=== PATIENT | female | born 1950 | race Caucasian/White ===

== ENCOUNTER → 2016-08-17 | Outpatient (CLI) | payer BC, OTHER ==
[~2016-08-17] MED LIST: ASPCH81X PO; CYCL10TA6 PO; ESTR1CRE PV; LISI5TAB3 PO; LPT/40 PO; METF1000 PO; TRAM-10 PO
== END | disposition home or self-care (01) ==
LOC: C.LABSPEC 17:45
PROVIDERS: ATTEND Obstetrics & Gynecology
DX: N76.0 Acute vaginitis (principal)

== ENCOUNTER → 2016-10-05 | Outpatient (CLI) | payer OTHER ==
[2016-10-05 13:29] LABS: BASO % 0.3 %; BASO ABS # 0.01 K/uL (0-0.2); COMPLETE YES; EOS % 2.3 %; HEMATOCRIT 39.6 % (37-47); LYMPH % 42.6 %; LYMPH ABS # 1.66 K/uL (1.2-3.4); MEAN CELL VOLUME 94.1 fL (80-100); MEAN CORPUSCULAR HEMOGLOBIN 30.2 pg (25-34); MEAN CORPUSCULAR HGB CONC 32.1 g/dl (32-36); MEAN PLATELET VOLUME 9.1 fL (7.4-10.4); MONO % 6.2 %; NEUT % 48.6 %; PLATELET COUNT 200 K/uL (130-400); RED BLOOD COUNT 4.21 M/uL (4.2-5.4)
[2016-10-05 13:42] LABS: CALCIUM 9.1 mg/dl (8.5-10.1)
[2016-10-05 13:52] LABS: BLOOD UREA NITROGEN 14 mg/dl (7-18); ESTIMATED AVERAGE GLUCOSE 131 mg/dl; GLUCOSE 127 mg/dl (70-99); HA1C FLAG Normal (Normal)
[2016-10-05 13:53] LABS: ALT/SGPT 21 U/L (12-78); BUN/CREATININE RATIO 11.9 (10-20); CARBON DIOXIDE 27 mmol/L (21-32); CHLORIDE 107 mmol/L (98-107); CHOLESTEROL 151 mg/dl (0-200); POTASSIUM 4.9 mmol/L (3.5-5.1); SODIUM 140 mmol/L (136-145); TRIGLYCERIDES 216 mg/dl (0-150); VERY LOW DENSITY LIPOPROT CALC 43 mg/dl
[2016-10-05 14:03] LABS: ALB/GLOB RATIO 1.1 (0.9-2); ALKALINE PHOSPHATASE 71 U/L (45-117); AST/SGOT 16 U/L (15-37); CHOLESTEROL/HDL RATIO 3.5; HDL CHOLESTEROL 43 mg/dl; LDL CHOLESTEROL CALCULATED 65 mg/dl
== END | disposition home or self-care (01) ==
LOC: C.LABPBG 09:04
PROVIDERS: ATTEND Neuromusculoskeletal Medicine & OMM
DX: Z00.00 Encounter for general adult medical examination without abnormal findings (principal); Z86.39 Personal history of other endocrine, nutritional and metabolic disease

== ENCOUNTER → 2017-05-25 | Outpatient (CLI) | payer OTHER ==
[2017-05-25 12:03] LABS: BASO % 0.3 %; BASO ABS # 0.01 K/uL (0-0.2); COMPLETE YES; EOS % 1.8 %; IG% 0.3 %; LYMPH % 43.8 %; LYMPH ABS # 1.68 K/uL (1.2-3.4); MEAN CELL VOLUME 92.4 fL (80-100); MEAN CORPUSCULAR HEMOGLOBIN 29.4 pg (25-34); MEAN CORPUSCULAR HGB CONC 31.8 g/dl (32-36); MONO % 7.3 %; NEUT % 46.5 %; PLATELET COUNT 201 K/uL (130-400); RED BLOOD COUNT 4.22 M/uL (4.2-5.4); WHITE BLOOD COUNT 3.84 K/uL (4.8-10.8)
[2017-05-25 12:29] LABS: ALT/SGPT 16 U/L (12-78); BLOOD UREA NITROGEN 17 mg/dl (7-18); BUN/CREATININE RATIO 12.5 (10-20); CALCIUM 9.2 mg/dl (8.5-10.1); CARBON DIOXIDE 27 mmol/L (21-32); CHLORIDE 104 mmol/L (98-107); CHOLESTEROL 155 mg/dl (0-200); CREATININE 1.39 mg/dl (0.60-1.20); GLUCOSE 129 mg/dl (70-99); POTASSIUM 4.7 mmol/L (3.5-5.1); SODIUM 136 mmol/L (136-145); TRIGLYCERIDES 185 mg/dl (0-150); VERY LOW DENSITY LIPOPROT CALC 37 mg/dl
[2017-05-25 12:37] LABS: ESTIMATED AVERAGE GLUCOSE 143 mg/dl; HA1C FLAG Normal (Normal)
[2017-05-25 12:39] LABS: ALB/GLOB RATIO 0.9 (0.9-2); ALKALINE PHOSPHATASE 76 U/L (45-117); AST/SGOT 11 U/L (15-37); CHOLESTEROL/HDL RATIO 3.1; HDL CHOLESTEROL 50 mg/dl; LDL CHOLESTEROL CALCULATED 68 mg/dl
== END | disposition home or self-care (01) ==
LOC: C.LABPBG 08:58
PROVIDERS: ATTEND Neuromusculoskeletal Medicine & OMM
DX: Z00.00 Encounter for general adult medical examination without abnormal findings (principal); I10 Essential (primary) hypertension; E78.5 Hyperlipidemia, unspecified; R73.03 Prediabetes

== ENCOUNTER → 2017-05-28 | Outpatient (CLI) | payer OTHER | END | disposition home or self-care (01) | LOC: C.LABPBG 14:45 | PROVIDERS: ATTEND Neuromusculoskeletal Medicine & OMM | DX: E78.5 Hyperlipidemia, unspecified (principal); R25.2 Cramp and spasm ==

== ENCOUNTER 2020-09-04 09:08 | Observation (INO) ==
[2020-09-04] MEDS ORDERED: FAMOTIDINE 20MG IV PUSH 20 MG/5 ML SYR IV STA (09:25)
[2020-09-04] MEDS ORDERED: ONDANSETRON INJ 2 MG/ML 2 ML VIAL IV STA (09:25)
[2020-09-04] MEDS ORDERED: SODIUM CHLORIDE 0.9% 1000ML 1,000 ML IV STA (09:25)
[2020-09-04] MEDS ORDERED: KETOROLAC TROMETHAMINE 15 MG/ML VIAL IV ONE (09:25)
--- NOTE | 2020-09-04 09:35 | Emergency Department Note ---
History of Present Illness General Chief complaint: Vomiting Stated complaint: VOMITING x24 HOURS Time Seen by Provider: 09/04/20 09:17 Source: patient Mode of arrival: ambulatory Limitations: no limitations History of Present Illness Provider complaint: Nausea/vomiting This is a 70-year-old female who presents to the ED with a chief complaint of nausea and vomiting as well as epigastric abdominal pain. The patient states that her symptoms started yesterday around noon. She states that she has not been able to keep anything down since that time. The patient reports a similar episode last Sunday that lasted for about 3 or 4 hours and then got better. She reports history of colectomy related to diverticulitis in May. He has intermittent epigastric discomfort that waxes and wanes. Home Medications Medication Instructions Recorded Confirmed Type blood sugar diagnostic #10 ea 12/26/18 07/23/20 History blood-glucose meter #1 ea 12/26/18 07/23/20 History aspirin 81 mg tablet,delayed 81 mg PO HS tab 04/25/19 09/04/20 History release [id number]-[id number]-[id number] 333 mg-133 1 tab PO BID tab 04/25/19 09/04/20 History mg-5 mg tablet fluticasone propionate 50 2 sprays INTRANASAL DAILY PRN gm 04/25/19 09/04/20 Hi story mcg/actuation nasal spray,suspension atenolol 37.5 mg PO QAM 02/02/20 09/04/20 History metformin 500 mg tablet 500 mg PO BID #180 tab 08/27/20 09/04/20 Rx fenofibrate nanocrystallized 145 mg PO QAM 09/04/20 09/04/20 History omeprazole 20 mg PO DAILYBB 09/04/20 09/04/20 History Allergies Allergy/AdvReac Type Severity Reaction Status Date / Time codeine Allergy Severe respiratory Verified 09/04/20 10:41 difficulty adhesive Allergy Intermediate skin pulls Verified 09/04/20 10:41 off latex Allergy Mild itchy with Verified 09/04/20 10:41 gloves amoxicillin Allergy Unknown Unknown Verified 09/04/20 10:41 Past Med/Surg History Medical History Aortic stenosis Benign essential hypertension Chronic kidney disease, stage III (moderate) Coronary artery disease Diverticular disease GERD without esophagitis Hyperlipidemia Nausea and vomiting after administration of anesthetic agent Osteoarthritis Type 2 diabetes mellitus Vaginal fistula Surgical History History of appendectomy History of cardiac cath x2--2002, no stents had CABG and 03/2018 @ [facility] [place]--no stents History of colonoscopy with polypectomy History of gynecological procedure benign vaginal biopsy History of left breast biopsy benign History of lumpectomy left breast--benign History of tooth extraction all teeth History of total hysterectomy with bilateral salpingo-oophorectomy (BSO) S/P CABG x 3 2002 @ [facility] [place]per pt she was having right neck pain performed a stress test--pt failed sent for heart cath and then immediate CABG ~Follows with Dr. 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 Beliefs That Will Affect Care: None marital status: Current Living Situation: Spouse current occupational status: retired Feels Safe at Home: Yes Childhood Exposure to Second-Hand Smoke: No caffeine: Yes Dental Care, Regularly: Yes Physical Activity Frequency: Daily Seatbelt Use: always Sunscreen Use: Yes Assistive Devices: Denture - Upper, Denture - Lower and Glasses Review of Systems A total of 10 systems reviewed and were otherwise negative Physical Exam Vital Signs Vital Signs - 24 hr 09/04/20 09:12 Temperature 36.0 C L Temperature Source Temporal Artery Scan Pulse Rate 57 L Pulse Rhythm Regular Pulse Strength Normal Respiratory Rate 18 Respiratory Effort / Characteristics Non-Labored Respiratory Depth Normal Respiratory Pattern Regular Blood Pressure 119/58 L Blood Pressure Mean 78 Blood Pressure Position Sitting Pulse Oximetry 95 Oxygen Delivery Method Room Air Sepsis Recent Fever Within 48 Hours No Sepsis New/Unexplained Change in Mental Status No Sepsis Action Taken by Nursing No Action Required CONSTITUTIONAL/VITAL SIGNS: Reviewed / noted above. GENERAL: Non-toxic in appearance. INTEGUMENTARY: Warm, dry, and [place]. HEAD: Normocephalic. EYES: without scleral icterus or trauma. ENT/OROPHARYNX: clear and moist. LYMPHADENOPATHY/NECK: Is supple without lymphadenopathy or meningismus. RESPIRATORY: Lungs clear and equal. CARDIOVASCULAR: Regular rate and rhythm. GI/ABDOMEN: Soft and tender in the epigastric area and less on the left upper quadrant. No organomegaly or pulsatile mass. No rebound or guarding. Normal bowel sounds. EXTREMITIES: Warm and well perfused. BACK: No CVA tenderness. NEUROLOGICAL: Intact without focal deficits. PSYCHIATRIC: normal affect. MUSCULOSKELETAL: Normally developed with good muscle tone. TRIAGE NURSING DOCUMENTATION REVIEWED. Course Administered Medications Discontinued Medications Sodium Chloride (Nss 1000ml) 1,000 mls @ 999 mls/hr IV .Q1H1M STA Stop: 09/04/20 10:25 Last Infusion: 09/04/20 10:41 Dose: 0 mls/hr Documented by: [id number] Admin: 09/04/20 09:44 Dose: 999 mls/hr Documented by: [id number] Famotidine (Pepcid 20mg Iv Push) 20 mg in 5 mls @ 2.5 mls/min IV NOW STA Stop: 09/04/20 09:26 Last Admin: 09/04/20 09:44 Dose: 2.5 mls/min Documented by: [id number] Ketorolac Tromethamine (Ketorolac Tromethamine 15 Mg/Ml Vial) 15 mg IV NOW ONE Stop: 09/04/20 09:26 Last Admin: 09/04/20 09:44 Dose: 15 mg Documented by: [id number] Ondansetron HCl (Ondansetron Inj 2 Mg/Ml 2 Ml Vial) 4 mg IV NOW STA Stop: 09/04/20 09:26 Last Admin: 09/04/20 09:44 Dose: 4 mg Documented by: [id number] Medical Decision Making Differential Diagnosis Differential considered: pancreatitis, hepatitis, acute cholecystitis, AAA, UTI, pyelonephritis, kidney stones, appendicitis, diverticulitis, shingles, bowel obstruction, mesenteric ischemia, intussusception,hernia. Medical Records Attestation: I reviewed the patient's medical records. Home Medications Current Medication List: was personally reviewed by me Laboratory Data Attestation: I reviewed the patient's lab results. Result diagrams: 09/04/20 09:40 09/04/20 09:40 Lab Results 09/04/20 09/04/20 Range/Units 09:40 09:40 WBC 5.59 (4.8-10.8) K/uL RBC 4.57 (4.2-5.4) M/uL Hgb 13.3 (12.0-16.0) g/dL Hct 39.9 (37-47) % MCV 87.3 (80-100) fL MCH 29.1 (25-34) pg MCHC 33.3 (32-36) g/dL RDW Std Deviation 46.5 H (36.4-46.3) fL RDW Coeff of Elza 14.5 (11.5-14.5) % Plt Count 354 (130-400) K/uL MPV 8.9 (7.4-10.4) fL Immature Gran % (Auto) 0.2 % Neut % (Auto) 74.7 % Lymph % (Auto) 16.5 % Nelson % (Auto) 8.2 % Eos % (Auto) 0.2 % Baso % (Auto) 0.2 % Neut # (Auto) 4.18 (1.4-6.5) K/uL Lymph # (Auto) 0.92 L (1.2-3.4) K/uL Nelson # (Auto) 0.46 (0.11-0.59) K/uL Eos # (Auto) 0.01 (0-0.5) K/uL Baso # (Auto) 0.01 (0-0.2) K/uL Immature Gran # (Auto) 0.01 (0.00-0.02) K/uL Sodium 136 (136-145) mmol/L Potassium 4.3 (3.5-5.1) mmol/L Chloride 102 (98-107) mmol/L Carbon Dioxide 26 (21-32) mmol/L Anion Gap 8.0 (3-11) BUN 21 H (7-18) mg/dl Creatinine 1.76 H (0.6-1.2) mg/dl Est Cr Clr Drug Dosing 28.8 ml/min Est GFR ( Amer) 33.6 Est GFR (Non-Af Amer) 29.0 BUN/Creatinine Ratio 11.8 (10-20) Glucose 167 H (70-99) mg/dl Calcium 10.4 H (8.5-10.1) mg/dl Total Bilirubin 0.6 (0.2-1) mg/dl AST 21 (15-37) U/L ALT 23 (12-78) U/L Alkaline Phosphatase 40 L (45-117) U/L Total Protein 8.0 (6.4-8.2) gm/dl Albumin 4.0 (3.4-5.0) gm/dl Globulin 4.0 (2.5-4.0) gm/dl Albumin/Globulin Ratio 1.0 (0.9-2) Lipase 236 (73-393) U/L Specimen Hemolysis Imaging Data Radiologist's Impression: HISTORY: Epigastric pain. Nausea. Vomiting. TECHNIQUE: Multiaxial CT images of the abdomen and pelvis were performed without contrast. A dose lowering technique was utilized adhering to the principles of ALARA. COMPARISON STUDY: Abdomen and pelvis CT 06/04/2020. FINDINGS: Punctate calcified granulomas within the lung bases. No pneumo peritoneum. No pneumatosis. Bilateral L5 spondylolysis with associated grade 1 anterolisthesis. Poststernotomy changes. No suspicious lytic are blastic osseous lesions. Prior midline incision. Trace fluid and fat within the subcutaneous location of the incision with minimal adjacent fat stranding. The fatty component components are loculated with a small soft tissue rind. Findings likely represent a fat necrosis related to the postoperative change. The bladder is decompressed. The uterus is surgically absent. Prior rectosigmoid anastomosis. Colonic diverticulosis. No evidence for acute diverticulitis. The colon is decompressed. Hepatic steatosis. The gallbladder, spleen, adrenal glands, and pancreas are unremarkable. No renal or ureteral stones. No hydronephrosis. Small bilateral peripelvic renal cysts. No retroperitoneal lymphadenopathy. Calcified plaque within the normal caliber abdominal aorta. Multiple dilated gas-filled loops of jejunum within the left side the abdomen. These measure up to 3.4 cm in diameter. There is a focal transition point within the midabdomen best seen on image 226. The small bowel distal to this transition point are decompressed. Therefore, this is consistent with a small bowel obstruction. Minimal mesenteric edema adjacent to the dilated loops of small bowel within the left side the abdomen. This is likely reactive to the small bowel obstruction. IMPRESSION: 1. Small bowel obstruction with the transition point located within the midabdomen as described above. 2. Prior rectosigmoid anastomosis. 3. Hysterectomy. 4. Hepatic steatosis. 5. Colonic diverticulosis. No evidence for acute diverticulitis. 6. Postoperative changes noted within the anterior abdominal wall consistent with prior midline incision. MDM Narrative Patient presents with epigastric abdominal pain, nausea and vomiting. Symptoms of pain going on for about 24 hours. Exam reveals tenderness to the epigastric area. CT scan suggest small bowel obstruction. CBC is unremarkable. Chemistry panel shows a slightly worsened creatinine than baseline. Patient was treated with some IV fluids, IV Pepcid, IV Toradol and IV Zofran. NG tube was ordered. The patient will be seen by the hospitalist for further evaluation and care. Impression & Plan SBO (small bowel obstruction), Vomiting Discharge Plan Visit Data Chief Complaint: Vomiting Stated Complaint: VOMITING x24 HOURS ED Provider: Darius Figueroa Discharge Problem: SBO (small bowel obstruction), Vomiting Forms Stand Alone Forms: [employer] Prescriptions Prescriptions: No Action metformin 500 mg tablet 500 mg PO BID Qty: 180 RF: 1 (DME) FreeStyle Test strip See Dose Instructions .ROUTE .MEDSUPPLY Qty: 10 RF: 0 (DME) blood-glucose meter [FreeStyle System Kit] kit See Dose Instructions .ROUTE .MEDSUPPLY Qty: 1 RF: 0 aspirin 81 mg tablet,delayed release (DR/EC) 81 mg PO HS RF: 0 aexrbtn-vdgjbazue-xcfj 333-133-5 mg tablet 1 tab PO BID RF: 0 fluticasone propionate 50 mcg/actuation spray,suspension 2 sprays intranasal DAILY PRN (Reason: Congestion) RF: 0 atenolol 25 mg tablet 37.5 mg PO QAM RF: 0 fenofibrate nanocrystallized 145 mg tablet 145 mg PO QAM RF: 0 omeprazole 20 mg capsule,delayed release(DR/EC) 20 mg PO DAILYBB RF: 0 Referrals Referrals: Wally Burns, [Primary Care Provider] -
[2020-09-04 09:48] LABS: Basophils # (auto) 0.01 K/uL (0-0.2); Basophils % (auto) 0.2 %; Eosinophils # (auto) 0.01 K/uL (0-0.5); Eosinophils % (auto) 0.2 %; Hematocrit (blood only) 39.9 % (37-47); Hemoglobin 13.3 g/dL (12.0-16.0); Immature Granulocytes # (auto) 0.01 K/uL (0.00-0.02); Immature Granulocytes % (auto) 0.2 %; Lymphocytes # (auto) 0.92 K/uL (1.2-3.4); Lymphocytes % (auto) 16.5 %; Mean Corpuscular Hemoglobin 29.1 pg (25-34); Mean Corpuscular Hgb Conc 33.3 g/dL (32-36); Mean Corpuscular Volume 87.3 fL (80-100); Mean Platelet Volume 8.9 fL (7.4-10.4); Monocytes # (auto) 0.46 K/uL (0.11-0.59); Monocytes % (auto) 8.2 %; Neutrophils # (auto) 4.18 K/uL (1.4-6.5); Neutrophils % (auto) 74.7 %; Platelet Count 354 K/uL (130-400); RDW Coefficient of Variation 14.5 % (11.5-14.5); RDW Standard Deviation 46.5 fL (36.4-46.3); Red Blood Count 4.57 M/uL (4.2-5.4); White Blood Count 5.59 K/uL (4.8-10.8)
[2020-09-04 10:15] LABS: BUN Creatinine Ratio 11.8 (10-20); Bilirubin,Total 0.6 mg/dl (0.2-1); Calcium 10.4 mg/dl (8.5-10.1); Creatinine Clr Calc Pharmacy 28.8 ml/min; Est GFR (African American) 33.6; Potassium 4.3 mmol/L (3.5-5.1)
--- NOTE | 2020-09-04 10:15 | CT Scan Report ---
ABDOMEN AND PELVIS CT WITHOUT CONTRAST CT DOSE: 896.96 mGy.cm HISTORY: Epigastric pain. Nausea. Vomiting. TECHNIQUE: Multiaxial CT images of the abdomen and pelvis were performed without contrast. A dose lo wering technique was utilized adhering to the principles of ALARA. COMPARISON STUDY: Abdomen and pelvis CT 06/04/2020. FINDINGS: Punctate calcified granulomas within the lung bases. No pneumoperitoneum. No pneumatosis. B ilateral L5 spondylolysis with associated grade 1 anterolisthesis. Poststernotomy changes. No suspici ous lytic are blastic osseous lesions. Prior midline incision. Trace fluid and fat within the subcuta neous location of the incision with minimal adjacent fat stranding. The fatty component components ar e loculated with a small soft tissue rind. Findings likely represent a fat necrosis related to the po stoperative change. The bladder is decompressed. The uterus is surgically absent. Prior rectosigmoid anastomosis. Colonic diverticulosis. No evidence for acute diverticulitis. The colon is decompressed. Hepatic steatosis. The gallbladder, spleen, adrenal glands, and pancreas are unremarkable. No renal or ureteral stones. No hydronephrosis. Small bilateral peripelvic renal cysts. No retroperitoneal lym phadenopathy. Calcified plaque within the normal caliber abdominal aorta. Multiple dilated gas-filled loops of jejunum within the left side the abdomen. These measure up to 3.4 cm in diameter. There is a focal transition point within the midabdomen best seen on image 226. The small bowel distal to this transition point are decompressed. Therefore, this is consistent with a small bowel obstruction. Min imal mesenteric edema adjacent to the dilated loops of small bowel within the left side the abdomen. This is likely reactive to the small bowel obstruction. IMPRESSION: 1. Small bowel obstruction with the transition point located within the midabdomen as described above . 2. Prior rectosigmoid anastomosis. 3. Hysterectomy. 4. Hepatic steatosis. 5. Colonic diverticulosis. No evidence for acute diverticulitis. 6. Postoperative changes noted within the anterior abdominal wall consistent with prior midline incis ion. ACT 112: Negative or not required by law. Electronically signed by: Jose Redman M.D. 09/04/2020 10:14 AM
--- NOTE | 2020-09-04 11:27 | History & Physical Report ---
Date of Service September 04, 2020 Assessment & Plan (1) SBO (small bowel obstruction): N.p.o. except sips of meds. IV fluids with electrolyte replacement as necessary. Will need diabetic and low-sodium diet once able to advance diet. Pain relief with acetaminophen as needed first-line, Dilaudid 0.5 mg every 2 hourly as needed second line Ondansetron for nausea or vomiting Consult surgery (2) Aortic stenosis: Mild to moderate on echocardiogram in April 2020 (3) Coronary artery disease: No recent angina CAB[place] x3 [place] [facility] [place] cardiac catheterization without significant change in need for PCI. Restart aspirin when able to tolerate p.o. liquids Continue atenolol as below Intolerant to multiple statins in the past (4) Chronic kidney disease, stage III (moderate): Close to baseline. Repeat BMP in a.m. with IV fluids (5) Benign essential hypertension: Continue atenolol 37.5 mg p.o. every morning to avoid rebound tachycardia with hold parameters (6) Type 2 diabetes mellitus: HbA1c 6.3 in July. No need to repeat this. Hold her usual Metformin NovoLog for correction factor only Goal BSG Range: Low 110 mg/dL, High 140 mg/dL Correction Factor: 45 mg/dL/unit No carb coverage BSGs ACHS if eating, q6h if npo (7) DVT prophylaxis: SCDs History of Present Illness Chief Complaint: Abdominal pain, nausea, vomiting Primary Care Provider: Wally Burns DO Lesia Yoo is a 70-year-old female who presents to the ER with nausea, vomiting and epigastric abdominal pain. This came on suddenly yesterday at midday. Last bowel movement yesterday morning. She was vomiting a "bucket full" this morning therefore decided to come to the emergency room. She denies any melena or bright red blood in stool. Epigastric pain has always been mild, current severity 3/10, worse right before she has a vomiting episode. Similar episode approximately 1 week ago which resolved spontaneously after a few hours. She has a significant history of vaginal bleeding in January colovaginal fistula seen on Gastrografin enema in February 2020. She underwent lap assisted low anterior resection and repair of colovesicular fistula on May 18, 2020 performed at (under Dr Dejesus). In the ER CT abdomen pelvis with IV contrast confirmed small bowel obstruction. NG tube was placed in the ER. She was referred to medicine for admission ongoing management of small bowel obstruction. Allergies Allergy/AdvReac Type Severity Reaction Status Date / Time codeine Allergy Severe respiratory Verified 09/04/20 10:41 difficulty adhesive Allergy Intermediate skin pulls Verified 09/04/20 10:41 off latex Allergy Mild itchy with Verified 09/04/20 10:41 gloves amoxicillin Allergy Unknown Unknown Verified 09/04/20 10:41 Home Medications Medication Instructions Recorded Confirmed Type blood sugar diagnostic #10 ea 12/26/18 07/23/20 History blood-glucose meter #1 ea 12/26/18 07/23/20 History aspirin 81 mg tablet,delayed 81 mg PO HS tab 04/25/19 09/04/20 History release gzcqisn-pnfnbmjsu-psge 333 mg-133 1 tab PO BID tab 04/25/19 09/04/20 History mg-5 mg tablet fluticasone propionate 50 2 sprays INTRANASAL DAILY PRN gm 04/25/19 09/04/20 History mcg/actuation nasal spray,suspension atenolol 37.5 mg PO QAM 02/02/20 09/04/20 History metformin 500 mg tablet 500 mg PO BID #180 tab 08/27/20 09/04/20 Rx fenofibrate nanocrystallized 145 mg PO QAM 09/04/20 09/04/20 History omeprazole 20 mg PO DAILYBB 09/04/20 09/04/20 History Past Med/Surg History Medical History Aortic stenosis Benign essential hypertension Chronic kidney disease, stage III (moderate) Coronary artery disease Diverticular disease GERD without esophagitis Hyperlipidemia Nausea and vomiting after administration of anesthetic agent Osteoarthritis Type 2 diabetes mellitus Vaginal fistula Surgical History History of appendectomy History of cardiac cath x2--2002, no stents [place] [facility] [place] History of colonoscopy with polypectomy History of gynecological procedure benign vaginal biopsy History of left breast biopsy benign History of lumpectomy left breast--benign History of tooth extraction all teeth History of total hysterectomy with bilateral salpingo-oophorectomy (BSO) S/P CABG x 3 2002 [place] [facility] [place] pt she was having right neck pain performed a stress test--pt failed sent for heart cath and then immediate CABG ~Follows with Dr. 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 Beliefs That Will Affect Care: None marital status: Current Living Situation: Spouse current occupational status: retired Feels Safe at Home: Yes Childhood Exposure to Second-Hand Smoke: No caffeine: Yes Dental Care, Regularly: Yes Physical Activity Frequency: Daily Seatbelt Use: always Sunscreen Use: Yes Assistive Devices: Denture - Upper, Denture - Lower and Glasses Review of Systems Review of Systems: All systems reviewed & are unremarkable except as noted in HPI & below Physical Exam Constitutional: well developed, well nourished and + acute distress (From NG tube discomfort) Eyes: + anicteric sclerae; normal pupil size ENMT: external ear and nose normal, oropharynx normal Neck: trachea midline, no thyromegaly Respiratory: normal respiratory effort, lungs clear to auscultation Cardiovascular: Rate/Rhythm: regular rate and regular rhythm Heart Sounds: + murmur (Holosystolic throughout) Extremities: normal capillary refill and + pedal edema (Trace pretibial pitting bilaterally equal); no calf tenderness Chronically right calf circumference > left Gastrointestinal (Abdomen): Inspection/Auscultation: + hyperactive bowel sounds; abdomen not distended Percussion/Palpation: + abdomen tender (Epigastric mild) and abdomen soft; no guarding and abdomen not rigid Musculoskeletal: no cyanosis or clubbing, extremities motor strength 5/5 Skin: no rashes, warm and dry Neurologic: moves all extremities and awake; not confused Psychiatric: A+Ox3, euthymic affect Results & Data Results & Data ([facility] [place]) Vital Signs (Past 12 Hours) Vital Signs Temp Pulse Resp BP Pulse Ox 09/04/20 09:12 36.0 C L 57 L 18 119/58 L 95 Diagnostic Findings ABDOMEN AND PELVIS CT WITHOUT CONTRAST IMPRESSION: 1. Small bowel obstruction with the transition point located within the midabdomen as described above. 2. Prior rectosigmoid anastomosis. 3. Hysterectomy. 4. Hepatic steatosis. 5. Colonic diverticulosis. No evidence for acute diverticulitis. 6. Postoperative changes noted within the anterior abdominal wall consistent with prior midline incision. Medications Administered ER medications given: NSS 1 hour bolus Ondansetron 4 mg IV Famotidine 20 mg IV Toradol 50 mg IV Code Status & VTE Plan Code Status Full VTE Prophylaxis Plan VTE Prophylaxis will be ordered: Yes Reason for no VTE drug order: Treatment not indicated (Low risk) PG Care Time/CCT Total # of Minutes Spent Total Time Spent with Patient: Total time spent is greater than 50% in coordination of care (as documented) at patient's floor/unit and/or counseling patient: Coding Level of Care Code 10081 Initial Inpt Care Lvl 3 Diagnoses SBO (small bowel obstruction) K56.609 Aortic stenosis I35.0 Cardiac valve disease etiology: nonrheumatic Coronary artery disease I25.10 Chronic kidney disease, stage III (moderate) N18.3 Benign essential hypertension I10 Type 2 diabetes mellitus E11.9 Diabetes mellitus terminal operator insulin use: without prison use Diabetes mellitus complication status: without complication DVT prophylaxis Z29.9 (1) Aortic stenosis Cardiac valve disease etiology: nonrheumatic Qualified Code(s): I35.0 - Nonrheumatic aortic (valve) stenosis (2) Type 2 diabetes mellitus Diabetes mellitus terminal operator insulin use: without prison use Diabetes mellitus complication status: without complication Qualified Code(s): E11.9 - Type 2 diabetes mellitus without complications
[2020-09-04] MEDS ORDERED: HYDROmorphone INJ 0.5 MG/0.5 ML SYR IV PRN (14:44)
[2020-09-04] MEDS ORDERED: ACETAMINOPHEN 1,000 MG/100 ML VIAL IV PRN (14:44)
[2020-09-04] MEDS ORDERED: GLUCAGON FOR INJ 1 MG VIAL SQ PRN (14:44)
[2020-09-04] MEDS ORDERED: GLUCOSE 10 TABS/TUBE PO PRN (14:44)
[2020-09-04] MEDS ORDERED: ONDANSETRON INJ 2 MG/ML 2 ML VIAL IV PRN (14:44)
[2020-09-04] MEDS ORDERED: DEXTROSE 50% 50 ML SYRINGE IV PRN (14:44)
[2020-09-04] MEDS ORDERED: CARBOHYDRATES FOR HYPOGLYCEMIA PO PRN (14:44)
[2020-09-04] MEDS ORDERED: GLUCOSE 40% GEL 15 GM TUBE PO PRN (14:44)
[2020-09-04] MEDS: SODIUM CHLOR 0.45% + 20MEQ KCL 20 MEQ/1,000 ML BAG IV SCH ×2 (15:23→23:32)
[2020-09-04 15:57] LABS: Appearance Urine Cloudy (Clear); Bacteria Urine Automated 1+ (Negative); Bilirubin Urine Negative (Negative); Blood Urine Trace (Negative); Color Urine Dark Yellow; Epithelial Cell Urine Auto >30 /lpf (0-5); Glucose Urine UA Negative (Negative); Ketones Urine Trace (Negative); Leukocyte Esterase Urine Negative (Negative); Nitrite Urine Positive (Negative); Protein Urine 1+ (Negative); RBC Urine Automated 0-4 /hpf (0-4); Specific Gravity Urine 1.029 (1.000-1.030); Urobilinogen Urine Negative (Negative)
[2020-09-04] MEDS: INSULIN ASPART 100 UNITS/ML 3 ML PEN SC SCH ×3 (17:04→21:30)
--- NOTE | 2020-09-04 23:10 | Surgery Consultation ---
Date of Consultation September 04, 2020 Assessment & Plan (1) SBO (small bowel obstruction): Patient small bowel obstruction is likely on the basis of adhesions from prior surgery. She has been admitted by the medical service. We will proceed as follows: Keep the patient n.p.o. Maintain NG tube. As patient is passing flatus if she continues to have improved bowel function we may consider either clamping trial of the NG tube or removal tomorrow. Maintain hydration measures with IV fluids Hopefully with the measures outlined above her small bowel obstruction will resolve with conservative measures and she will not require surgery. Remainder of plan as directed by primary service Supervising Physician Co-Signing Physician Notes I personally saw and evaluated the patient with Nick Mcdonald PA-C and agree with the assessment and plan. 70 yo female with pSBO s/p lap LAR in May 2020 -NPO -NGT -IVF -Serial abdominal exams -NO emergent need for operative intervention History of Present Illness Reason for Consultation: Small bowel obstruction Attending Physician: Mehul Meehan MD History of Present Illness This is a 70-year-old female who presented to the emergency department at [facility] due to nausea and vomiting that is persisted for 24 to 48 hours. Patient does relate that approximately 1 week ago she had some intermittent nausea vomiting. She merely felt that she had a gastrointestinal bug as the symptoms resolved. She was doing well thereafter however approximately 24 to 48 hours ago she developed nausea vomiting that did not resolve so she came to the emergency department. She denies any abdominal pain. She denies any hematemesis. She notes that she did have a normal bowel movement earlier today and does not report any melena or bright blood per rectum. She does not note any modifying factors of her current presentation. Patient had various imaging and laboratory studies performed in the emergency department which I independently reviewed. CBC revealed her hemoglobin, hematocrit, white blood cell count, and platelet count were all within normal range. Chemistry profile revealed her sodium and potassium were within normal range. Her BUN and creatinine were noted to be 21 and 1.76. Both of these values were noted to be slight elevations from her baseline levels. A Covid test was performed and was negative. CT scan of the abdomen showed concern for a small bowel obstruction I question the patient about previous abdominal surgeries. She does note in the past she has had a hysterectomy and she is also had a partial colectomy secondary to diverticulitis. Since admission to the hospital she has been kept n.p.o., has had an NG tube inserted, and has been given IV fluids. She notes her symptoms have improved somewhat and she is passing flatus. At the time of my encounter with the patient she was resting comfortably in bed and is in no distress. Allergies Allergy/AdvReac Type Severity Reaction Status Date / Time codeine Allergy Severe respiratory Verified 09/04/20 10:41 difficulty adhesive Allergy Intermediate skin pulls Verified 09/04/20 10:41 off latex Allergy Mild itchy with Verified 09/04/20 10:41 gloves amoxicillin Allergy Unknown Unknown Verified 09/04/20 10:41 Home Medications Medication Instructions Recorded Confirmed Type blood sugar diagnostic #10 ea 12/26/18 07/23/20 History blood-glucose meter #1 ea 12/26/18 07/23/20 History aspirin 81 mg tablet,delayed 81 mg PO HS tab 04/25/19 09/04/20 History release ahqxpum-dsheqkdbw-tvny 333 mg-133 1 tab PO BID tab 04/25/19 09/04/20 History mg-5 mg tablet fluticasone propionate 50 2 sprays INTRANASAL DAILY PRN gm 04/25/19 09/04/20 History mcg/actuation nasal spray,suspension atenolol 37.5 mg PO QAM 02/02/20 09/04/20 History metformin 500 mg tablet 500 mg PO BID #180 tab 08/27/20 09/04/20 Rx fenofibrate nanocrystallized 145 mg PO QAM 09/04/20 09/04/20 History omeprazole 20 mg PO DAILYBB 09/04/20 09/04/20 History Patient History Medical History Aortic stenosis Benign essential hypertension Chronic kidney disease, stage III (moderate) Coronary artery disease Diverticular disease GERD without esophagitis Hyperlipidemia Nausea and vomiting after administration of anesthetic agent Osteoarthritis Type 2 diabetes mellitus Vaginal fistula Surgical History History of appendectomy History of cardiac cath x2--2002, no stents had CABG and 03/2018 @ [facility] [place]--no stents History of colonoscopy with polypectomy History of gynecological procedure benign vaginal biopsy History of left breast biopsy benign History of lumpectomy left breast--benign History of tooth extraction all teeth History of total hysterectomy with bilateral salpingo-oophorectomy (BSO) S/P CABG x 3 2002 @ [facility] [place]--per pt she was having right neck pain performed a stress test--pt failed sent for heart cath and then immediate CABG ~Follows with Dr. Leahy S/P colon resection S/P epidural steroid injection Family History Brother Myocardial infarction Family history of diabetes mellitus Father Myocardial infarction Mother Myocardial infarction Other No family history of adverse response to anesthesia Denies family history of Ovarian cancer Prostate cancer Breast cancer Colorectal cancer Social History Smoking Status: Former smoker Second Hand Exposure: No; Hx Alcohol Use: No Hx Substance Use: No Preferred Language: Vincentian Communication Ability: Effective Visual Impairment: No Limitations Hearing Ability: Normal Batch Unloader Required: No Beliefs That Will Affect Care: None marital status: Current Living Situation: Spouse current occupational status: retired Feels Safe at Home: Yes Childhood Exposure to Second-Hand Smoke: No caffeine: Yes Dental Care, Regularly: Yes Physical Activity Frequency: Daily Seatbelt Use: always Sunscreen Use: Yes Assistive Devices: None, Denture - Upper, Denture - Lower and Glasses Review of Systems Constitutional: no fever and no chills Eyes: no diplopia Ear, Nose, Mouth, Throat: no ear pain Respiratory: no cough and no dyspnea Cardiovascular: no chest pain Gastrointestinal: + nausea and + vomiting; no abdominal pain Genitourinary: no dysuria Musculoskeletal: no back pain Integumentary: no rash Neurologic: no localized weakness Physical Exam Constitutional: well developed and well nourished; no acute distress Eyes: no conjunctival abnormality Wears glasses ENMT: Ears: no hearing impairment NG tube is in place Neck: trachea midline Respiratory: normal respiratory effort; no respiratory distress and no labored breathing Cardiovascular: Rate/Rhythm: regular rate and regular rhythm Gastrointestinal (Abdomen): Abdomen is soft and nondistended. Bowel sounds are present but hypoactive. There is no pain with palpation. There is no rebound tenderness or guarding. Musculoskeletal: No calf tenderness Skin: no rashes, warm and dry Neurologic: moves all extremities Results & Data ([facility]) Vital Signs (Past 12 Hours) Vital Signs Temp Pulse Pulse Resp BP BP BP 09/04/20 14:51 36.4 C L 67 16 149/68 H 09/04/20 14:49 36.4 C L 67 16 149/68 H 09/04/20 13:58 70 20 163/82 H 09/04/20 13:00 70 17 162/81 H 09/04/20 11:08 75 18 175/72 H Pulse Ox 09/04/20 14:51 99 09/04/20 14:49 99 09/04/20 13:58 100 09/04/20 13:00 98 09/04/20 11:08 100 PG Care Time/CCT Total # of Minutes Spent Total Time Spent with Patient: Total time spent is greater than 50% in coordination of care (as documented) at patient's floor/unit and/or counseling patient: Coding Level of Care Code 94615 Inpt Consult Level 5 Diagnoses SBO (small bowel obstruction) K56.609
[2020-09-05] MEDS ORDERED: Nursing to Pharmacy Communication SCH ×2 (00:15→11:15)
[2020-09-05] MEDS ORDERED: INSULIN ASPART 100 UNITS/ML 3 ML PEN SC SCH (06:00)
[2020-09-05 06:20] LABS: Basophils # (auto) 0.01 K/uL (0-0.2); Basophils % (auto) 0.3 %; Eosinophils # (auto) 0.02 K/uL (0-0.5); Eosinophils % (auto) 0.7 %; Hematocrit (blood only) 34.8 % (37-47); Hemoglobin 11.2 g/dL (12.0-16.0); Lymphocytes # (auto) 1.13 K/uL (1.2-3.4); Lymphocytes % (auto) 37.5 %; Mean Corpuscular Hemoglobin 28.6 pg (25-34); Mean Corpuscular Hgb Conc 32.2 g/dL (32-36); Mean Platelet Volume 8.3 fL (7.4-10.4); Monocytes # (auto) 0.32 K/uL (0.11-0.59); Monocytes % (auto) 10.6 %; Neutrophils # (auto) 1.53 K/uL (1.4-6.5); Neutrophils % (auto) 50.9 %; Platelet Count 214 K/uL (130-400); RDW Coefficient of Variation 14.6 % (11.5-14.5); RDW Standard Deviation 47.7 fL (36.4-46.3); Red Blood Count 3.91 M/uL (4.2-5.4); White Blood Count 3.01 K/uL (4.8-10.8)
--- NOTE | 2020-09-05 06:28 | Surgery Progress Note ---
Date of Service September 05, 2020 Assessment & Plan (1) SBO (small bowel obstruction): Etiology of small bowel obstruction is likely adhesions from prior surgery. She has been admitted by the medical service. As patient's abdominal exam is benign and her bowel function has returned we will consider removing NG tube later this morning. If NG tube removed later this morning would recommend starting with clear liquid diet and advancing slowly as tolerated Maintain hydration measures with IV fluids until oral intake is reliable Remainder of plan as directed by primary service Admission and Anticipated Discharge Date Admission Date: September 04, 2020 Supervising Physician Co-Signing Physician Notes I personally saw and evaluated the patient with Nick Mcdonald PA-C and agree with the assessment and plan. 70 yo female with pSBO s/p lap LAR in May 2020 -Passing flatus and small BM -Will remove NGT and start clears Subjective Since last evening's visit the patient noted some improvement. She notes that she has had a bowel movement and she continues to pass flatus. She denies any worsening abdominal pain. She has not had any further nausea vomiting since NG tube placement. She denies any fevers, shakes, chills, or shortness of breath. Physical Exam Constitutional: well developed and well nourished; no acute distress ENMT: NG tube is in place Respiratory: normal respiratory effort; no respiratory distress and no labored breathing Gastrointestinal (Abdomen): Abdomen is soft and nondistended. Bowel sounds are present. There is no pain with palpation. There is no rebound tenderness or guarding. Musculoskeletal: No calf tenderness Results & Data ([facility]) Vital Signs (Past 12 Hours) Vital Signs Temp Pulse Resp BP Pulse Ox 09/04/20 23:30 36.6 C 71 16 132/74 95 PG Care Time/CCT Total # of Minutes Spent Total Time Spent with Patient: Total time spent is greater than 50% in coordination of care (as documented) at patient's floor/unit and/or counseling patient: Coding Level of Care Code 69148 Subseq Hosp Care Lvl 1 Diagnoses SBO (small bowel obstruction) K56.609
[2020-09-05 06:52] LABS: BUN Creatinine Ratio 15.5 (10-20); Calcium 8.4 mg/dl (8.5-10.1); Creatinine Clr Calc Pharmacy 35.7 ml/min; Est GFR (African American) 43.2; Est GFR (Non-African American) 37.3; Potassium 4.3 mmol/L (3.5-5.1)
[2020-09-05] MEDS: SODIUM CHLOR 0.45% + 20MEQ KCL 20 MEQ/1,000 ML BAG IV SCH ×2 (07:35→16:05)
[2020-09-05] MEDS ORDERED: FAMOTIDINE 20 MG in SYRINGE 3 ML IV SCH (09:00)
[2020-09-05] MEDS ORDERED: ATENOLOL 25 MG TABLET PO SCH (09:00)
[2020-09-05] MEDS: INSULIN ASPART 100 UNITS/ML 3 ML PEN SC SCH ×2 (13:21→17:55)
--- NOTE | 2020-09-05 17:20 | Discharge Summary ---
Date of Service date of admission - September 04, 2020 date of discharge - September 05, 2020 Admission HPI Per Admitting Provider Lesia Yoo is a 70-year-old female who presents to the ER with nausea, vomiting and epigastric abdominal pain. This came on suddenly yesterday at midday. Last bowel movement yesterday morning. She was vomiting a "bucket full" this morning therefore decided to come to the emergency room. She denies any melena or bright red blood in stool. Epigastric pain has always been mild, current severity 3/10, worse right before she has a vomiting episode. Similar episode approximately 1 week ago which resolved spontaneously after a few hours. She has a significant history of vaginal bleeding in January colovaginal fistula seen on Gastrografin enema in February 2020. She underwent lap assisted low anterior resection and repair of colovesicular fistula on May 18, 2020 performed at [facility] (under Dr Dejesus). In the ER CT abdomen pelvis with IV contrast confirmed small bowel obstruction. NG tube was placed in the ER. She was referred to medicine for admission ongoing management of small bowel obstruction. Principal Diagnosis Small Bowel Obstruction (SBO) Discharge Exam Constitutional well developed and well nourished; no acute distress and no altered mental st atus ENMT external ear and nose normal, oropharynx normal Respiratory normal respiratory effort, lungs clear to auscultation Cardiovascular Rate/Rhythm: regular rate and regular rhythm Heart Sounds: normal S1, normal S2 and + murmur Vessels: posterior tibial pulses present and dorsalis pedis pulses present; no JVD Extremities: no edema Gastrointestinal (Abdomen) normal bowel sounds, soft, nontender, no hepatosplenomegaly Inspection/Auscultation: abdomen not distended Psychiatric A+Ox3, euthymic affect Discharge Data Allergies Allergy/AdvReac Type Severity Reaction Status Date / Time codeine Allergy Severe respiratory Verified 09/04/20 10:41 difficulty adhesive Allergy Intermediate skin pulls Verified 09/04/20 10:41 off latex Allergy Mild itchy with Verified 09/04/20 10:41 gloves amoxicillin Allergy Unknown Unknown Verified 09/04/20 10:41 Consultations [facility] [place] General Surgery Ordered Studies 09/04/20 09:25 CT abd pelvis wo con Stat IMPRESSION: 1. Small bowel obstruction with the transition point located within the midabdomen as described above. 2. Prior rectosigmoid anastomosis. 3. Hysterectomy. 4. Hepatic steatosis. 5. Colonic diverticulosis. No evidence for acute diverticulitis. 6. Postoperative changes noted within the anterior abdominal wall consistent with prior midline incision. Hospital Course (1) SBO (small bowel obstruction): Treated with NG tube decompression, IV fluids, and bowel rest. Patient's SBO resolved rather quickly as marked by passage of flatus and stools early on in her clinical course. Seen by [facility] [place] General surgery, and following the passage of stool, the NG tube was discontinued. She was resumed on a clear liquids diet and advanced without any GI intolerance. Abdominal exam normalized. She was asked to follow a low-fiber diet for at least 7 days post-discharge. (2) Aortic stenosis: Mild to moderate on echocardiogram in April 2020 (3) Coronary artery disease: No recent angina/ischemic symptoms. CABG x3 in 2002 [facility] [place]. [place] cardiac catheterization without significant change in need for PCI. Continue aspirin Continue atenolol Intolerant to multiple statins in the past (4) Chronic kidney disease, stage III (moderate): baseline CrCL 30s/40s (5) Benign essential hypertension: Continue atenolol 37.5 mg p.o. every morning (6) Type 2 diabetes mellitus: HbA1c 6.3 in July 2020. Metformin resumed at discharge. (of note - CT abd/pelvis was WITHOUT IV contrast). Total Time Total Time Spent Total Time Spent (In Minutes): 35 Total Time Includes: Examination of the Patient, Discharge Planning, Medication Reconciliation and Communication With Other Providers Discharge Plan Discharge Items Patient Disposition: Home - Self-Care Reason For Visit: SMALL BOWEL OBSTRUCTION Discharge Diagnosis: Small bowel obstruction - resolved Activity: As commented below Activity Comment: gradually increase your activities over the next 3-4 days Non-emergency contact: Primary Care Provider Call non-emergency contact if: you have any medication questions and your symptoms worsen Follow-up/Referrals: Wally Burns, DO [Primary Care Provider] - (see Dr Burns within 1 week ) Diet: Carb Consistent or DM2 and Low Fiber Addtl Attending Provider Instructions: Mrs Yoo, You were treated for small bowel obstruction ("SBO") with IV fluids, NG tube placement, and time. You quickly improved with passage of gas and bowel movements. The general surgery team removed the NG tube and you were given a diet. This was advanced without difficulty. The SBO was likely due to adhesions within the abdominal cavity. Adhesions are scar tissue from prior operations. Recommendations - 1. low fiber diet for at least 7 days; please see handout. 2. avoid fried foods, fast foods, and large meals over the next few days as you continue to recover. 3. after about 7 days you can gradually reintroduce foods that have larger amounts of fiber in them (certain cereals, oatmeal, beans, etc). 4. your urine culture is growing bacteria. However, you are not having symptoms of a urinary tract infection. In the next 2-3 days if you notice foul-smelling urine, discomfort with urination, frequency of urination, accidents, etc you can start the antibiotic. It is a 5-day course. I have sent the prescription to [facility] for you. Follow-up - see separate section. Return to [facility] if - * you have fevers over 100 degrees * your abdomen becomes bloated/distended, you are no longer passing gas or stool, or you develop abdominal pain * you have nausea/vomiting * any other concerns Continue to feel better! -Dr Rm Pending Studies at Discharge: No Stand-Alone Forms: My [facility], Smoking Cessation Medications and DC Order Prescriptions: Continued metformin 500 mg tablet 500 mg PO BID Qty: 180 RF: 1 (DME) FreeStyle Test strip See Dose Instructions .ROUTE .MEDSUPPLY Qty: 10 RF: 0 (DME) blood-glucose meter [FreeStyle System Kit] kit See Dose Instructions .ROUTE .MEDSUPPLY Qty: 1 RF: 0 aspirin 81 mg tablet,delayed release (DR/EC) 81 mg PO HS RF: 0 kihilwh-alogyvymu-aeay 333-133-5 mg tablet 1 tab PO BID RF: 0 fluticasone propionate 50 mcg/actuation spray,suspension 2 sprays intranasal DAILY PRN (Reason: Congestion) RF: 0 atenolol 25 mg tablet 37.5 mg PO QAM RF: 0 fenofibrate nanocrystallized 145 mg tablet 145 mg PO QAM RF: 0 omeprazole 20 mg capsule,delayed release(DR/EC) 20 mg PO DAILYBB RF: 0 Discharge Orders: Discharge Order (Routine); Ordered 09/05/20 Ordered By: Mehul Gunn/Other Patient Handouts: Small Bowel Obstruction, Low-Fiber Diet Admission Data Admit Date/Time: 09/04/20 11:14 Attending Provider: Mehul Rm Admit Provider: Mehul Meehan Primary Care Provider: Wally Burns Other Providers: José Miguel Villavicencio Other Interventions: Discharge Summary Assessment (RN) Last Done: 09/05/20 17:44 Coding Level of Care Code 64707 OBS Care - Discharge Diagnoses SBO (small bowel obstruction) K56.609 Aortic stenosis I35.0 Cardiac valve disease etiology: nonrheumatic Coronary artery disease I25.10 Chronic kidney disease, stage III (moderate) N18.3 Benign essential hypertension I10 Type 2 diabetes mellitus E11.9 Diabetes mellitus complication status: without complication Diabetes mellitus fdc insulin use: without long wall shear operator use
== END 2020-09-05 18:21 | disposition home or self-care (01) | DRG 390 ==
LOC: ED 09:08 → INTOOBSV 11:14 → 3N 11:14 → SUATTDRO 11:14 → 3N 13:58
DX: N18.30 Chronic kidney disease, stage 3 unspecified; I35.0 Nonrheumatic aortic (valve) stenosis; I12.9 Hypertensive chronic kidney disease with stage 1 through stage 4 chronic kidney disease, or unspecified chronic kidney disease; Z88.0 Allergy status to penicillin; Z79.899 Other long term (current) drug therapy; K56.51 Intestinal adhesions [bands], with partial obstruction; Z88.5 Allergy status to narcotic agent; E11.22 Type 2 diabetes mellitus with diabetic chronic kidney disease; Z87.891 Personal history of nicotine dependence; I25.10 Atherosclerotic heart disease of native coronary artery without angina pectoris; Z79.82 Long term (current) use of aspirin; Z95.1 Presence of aortocoronary bypass graft; Z79.84 Long term (current) use of oral hypoglycemic drugs; Z91.040 Latex allergy status; Z91.048 Other nonmedicinal substance allergy status; K21.9 Gastro-esophageal reflux disease without esophagitis

== ENCOUNTER 2021-09-07 12:52 | Inpatient (IN) ==
[2021-09-07] MEDS ORDERED: ASPIRIN CHEW 324 MG PO STA (13:29)
[2021-09-07] MEDS ORDERED: NITROGLYCERIN SL 0.4 MG/TAB TAB SL STA ×2 (13:29→13:48)
[2021-09-07] MEDS ORDERED: ASPIRIN CHEW 324 MG ONE (13:29)
[2021-09-07] MEDS ORDERED: NITROGLYCERIN SL 0.4 MG/TAB TAB ONE (13:29)
[2021-09-07 13:42] LABS: Basophils # (auto) 0.01 K/uL (0-0.2); Basophils % (auto) 0.2 %; Eosinophils # (auto) 0.07 K/uL (0-0.5); Eosinophils % (auto) 1.1 %; Hematocrit (blood only) 40.3 % (37-47); Hemoglobin 12.4 g/dL (12.0-16.0); Immature Granulocytes # (auto) 0.01 K/uL (0.00-0.02); Immature Granulocytes % (auto) 0.2 %; Lymphocytes # (auto) 1.14 K/uL (1.2-3.4); Lymphocytes % (auto) 17.6 %; Mean Corpuscular Hemoglobin 28.2 pg (25-34); Mean Corpuscular Hgb Conc 30.8 g/dL (32-36); Mean Corpuscular Volume 91.6 fL (80-100); Mean Platelet Volume 8.8 fL (7.4-10.4); Monocytes % (auto) 6.2 %; Neutrophils # (auto) 4.85 K/uL (1.4-6.5); Neutrophils % (auto) 74.7 %; Platelet Count 281 K/uL (130-400); RDW Coefficient of Variation 17.7 % (11.5-14.5); RDW Standard Deviation 59.1 fL (36.4-46.3); White Blood Count 6.48 K/uL (4.8-10.8)
[2021-09-07] MEDS ORDERED: NITROGLYCERIN SL 0.4 MG/TAB TAB SL ONE (13:44)
[2021-09-07] MEDS ORDERED: NITROGLYCERIN 2% OINTMENT 30GM TUBE EXT STA (13:48)
[2021-09-07] MEDS ORDERED: NITROGLYCERIN 2% OINTMENT 30GM TUBE ONE (13:49)
[2021-09-07 13:54] LABS: Partial Thromboplastin Ratio 0.9; Partial Thromboplastin Time 24.2 Seconds (21.0-31.0); Prothrombin Time 11.1 Seconds (9.0-12.0)
--- NOTE | 2021-09-07 14:00 | XRay Report ---
XR chest 1V portable CLINICAL HISTORY: CHEST PAIN. COMPARISON STUDY: 08/18/2021 TECHNIQUE: 1 view of the chest FINDINGS: Single frontal view of the chest demonstrates the heart size to be at the upper limits of normal stat us post previous cardiothoracic surgery. There is a decreased inspiratory effort with elevation of th e hemidiaphragms and crowding of the bronchovascular markings at the lung bases and centrally. The abrahan ngs are clear of alveolar opacities. There is no evidence for pleural effusion. There is no evidence for vascular congestion. There is no acute osseous pathology. IMPRESSION: 1. . There is a decreased inspiratory effort with otherwise no acute chest disease. ACT 112: Negative or not required by law. Electronically signed by: Parish Harmon M.D. 09/07/2021 1:58 PM
[2021-09-07] MEDS ORDERED: METOPROLOL TARTRATE 1 MG/ML VIAL IV STA (14:01)
[2021-09-07 14:05] LABS: Albumin Globulin Ratio 1.4 (0.9-2); Albumin Level 4.3 gm/dl (3.4-5.0); BUN Creatinine Ratio 14.8 (10-20); Bilirubin,Total 0.3 mg/dl (0.2-1.0); Calcium 9.5 mg/dl (8.5-10.1); Creatinine Clr Calc Pharmacy 37.9 ml/min; Est GFR (African American) 43.3 ml/min; Est GFR (Non-African American) 37.3 ml/min; Globulin 3.1 gm/dl (2.5-4.0); Potassium 4.2 mmol/L (3.5-5.1); Total Protein 7.4 gm/dl (6.0-8.3)
[2021-09-07 14:14] LABS: Troponin I 0.36 ng/ml (0-0.04)
--- NOTE | 2021-09-07 14:14 | Cardiology Consultation ---
Date of Consultation September 07, 2021 Assessment & Plan (1) NSTEMI (non-ST elevated myocardial infarction): 2. Severe aortic stenosis, moderate AI 3. New mild LV dysfunction, EF 45%, lateral, inferolateral wall motion 4. New at least moderate eccentric mitral regurgitation 5. Acute heart failure 6. Multivessel CADcardiac cath 2 weeks ago showing patent ALLISON to LAD, very small diseased radial to distal RCA. Known occluded Y graft to circumflex 7. Stage III CKD 8. Anemia Presentation consistent with acute coronary syndrome. Circumflex appears to be her culprit vessel with new lateral/inferolateral wall motion abnormality on echo and potential ischemic mitral regurgitation. On recent cath again described to have an occluded ostial left main with a patent ALLISON to LAD that provided collaterals to circumflex territory. Very low suspicion for new ALLISON to LAD disease and feel it is unlikely she has any percutaneous revascularization targets. As patient hemodynamically, electrically stable with resolving symptoms recommend medical management currently. Eventually she will need her severe valve disease to be addressed. [facility] where was previously being evaluated for TAVR was contacted. At present no available bed. Plan: Admit to ICU for further monitoring Start IV heparin Continue nitro infusion and titrate up for chest pain and BP <130 Continue aspirin. Transition home atenolol to metoprolol. Additional IV Lasix PRN for respiratory symptoms transfer to [facility] cardiology when bed available for management of valve disease (Dr. Tai accepting). History of Present Illness History of Present Illness Mrs. Yoo is a very pleasant 71-year-old woman with a history of multivessel coronary disease post three-vessel CABG in 2002 (ALLISON to LAD with Y graft to OM and radial graft to RCA) and severe aortic stenosis here with acute chest pain and dyspnea. Patient followed by Dr. Leahy for her cardiac care. Recently referred to [facility] due to her symptomatic severe . Underwent cardiac catheterization on 08/26/2021. Cardiac cath revealed occluded ostial LMCA and occluded ostial RCA. ALLISON to LAD patent. Circumflex system moderately diseased and filled retrograde via collaterals from ALLISON to LAD. Radial graft to RCA small, diffusely diseased but patent (per notes from interventionalist Dr. Ventura"RCA graft quite small and essentially her RCA territory is nearly eliminated."). She was awaiting TAVR protocol CT scan, meeting cardiac surgeon and scheduling of her TAVR procedure. Today she was walking into the hospital for scheduled IV iron infusion when developed shortness of breath and chest pain radiating to by her bilateral arms. Has had similar exertional symptoms in the past but current symptoms more severe and persisted so presented to ED. Initial ECG showed sinus rhythm with new marked ST depressions in V1 through V3. Initial troponin mildly elevated at 0.36. Chest x-ray with mild congestion. Patient adamant that did not want to undergo coronary angiography at any place without cardiac surgery backup. In the setting of her symptomatic severe , no apparent ACS and heart failure [facility] was contacted for urgent transfer. Patient received nitrates, beta-glenna, IV Lasix. Still with mild residual chest tightness. CTA negative for dissection. Repeat ECG again showed marked anterior ST depressions. Echocardiogram showed new LV dysfunction with EF of 45% and new lateral, inferolateral wall motion abnormality with new at least moderate eccentric MR. Allergies Allergy/AdvReac Type Severity Reaction Status Date / Time codeine Allergy Severe respiratory Verified 09/07/21 13:18 difficulty adhesive Allergy Intermediate skin pulls Verified 09/07/21 13:18 off latex Allergy Mild itchy with Verified 09/07/21 13:18 gloves amoxicillin Allergy Unknown Unknown Verified 09/07/21 13:18 Home Medications Medication Instructions Recorded Confirmed Type blood sugar diagnostic (FreeStyle #10 ea 12/26/18 07/22/21 History Test) blood-glucose meter (FreeStyle #1 ea 12/26/18 07/22/21 History System Kit) aspirin 81 mg tablet,delayed 81 mg PO HS tab 04/25/19 09/07/21 History release fluticasone propionate 50 2 sprays INTRANASAL DAILY PRN gm 04/25/19 09/07/21 History mcg/actuation nasal spray,suspension atenolol 25 mg tablet 37.5 mg PO QAM #135 tab 07/22/21 09/07/21 Rx magnesium 250 mg tablet 400 mg PO DAILY tab 07/22/21 09/07/21 History omeprazole 20 mg capsule,delayed 20 mg PO DAILYBB #90 cap 07/25/21 09/07/21 Rx release fenofibrate nanocrystallized 145 145 mg PO QAM #90 tab 09/05/21 09/07/21 Rx mg tablet metformin 500 mg tablet 500 mg PO BID #180 tab 09/05/21 09/07/21 Rx Patient History Medical History Anemia Aortic stenosis [id number] -echocardiogram 04/29/2020 Benign essential hypertension Chronic kidney disease, stage III (moderate) Coronary artery disease Diverticular disease GERD without esophagitis Leukopenia Mild mitral regurgitation echocardiogram 04/29/2020 Nausea and vomiting after administration of anesthetic agent Osteoarthritis SBO (small bowel obstruction) Type 2 diabetes mellitus Vaginal fistula Surgical History History of appendectomy History of cardiac cath x2--2002, no stents had CABG and 03/2018 @ [facility] [place]--no stents History of colonoscopy with polypectomy History of gynecological procedure benign vaginal biopsy History of left breast biopsy benign History of lumpectomy left breast--benign History of tooth extraction all teeth History of total hysterectomy with bilateral salpingo-oophorectomy (BSO) S/P CABG x 3 2002 @ [facility] [place]--per pt she was having right neck pain performed a stress test--pt failed sent for heart cath and then immediate CABG ~Follows with Dr. Leahy S/P colon resection S/P epidural steroid injection Family History Brother Myocardial infarction Family history of diabetes mellitus Father Myocardial infarction Mother Myocardial infarction Other No family history of adverse response to anesthesia Denies family history of Ovarian cancer Prostate cancer Breast cancer Colorectal cancer Social History Smoking Status: Never smoker Tobacco Type: Cigarettes Age Started Using Tobacco: 18; Age Quit Using Tobacco: 33; packs per day: 0.5; Second Hand Exposure: No; Hx Alcohol Use: No Hx Substance Use: No Preferred Language: Kyrgyz Communication Ability: Effective Visual Impairment: Limited Hearing Ability: Normal Glass Artist Required: No Beliefs That Will Affect Care: None marital status: Current Living Situation: Spouse current occupational status: retired How many Children do You have: 2 Feels Safe at Home: Yes Childhood Exposure to Second-Hand Smoke: No caffeine: Yes during the past year weight has: remained stable Dental Care, Regularly: Yes Physical Activity Frequency: Daily Seatbelt Use: always Sunscreen Use: Yes Assistive Devices: Denture - Upper, Denture - Lower and Glasses Review of Systems Review of Systems: All systems reviewed & are unremarkable except as noted in HPI & below Physical Exam Physical Exam: Gen.: Mildly uncomfortable HEENT: Anicteric sclera. Neck: No JVD. Cardiac: Regular, normal S1-S2. 2/6 late peaking systolic ejection murmur heard best at right upper sternal border. 2/6 holosystolic murmur at the apex Pulmonary: Few crackles at the bases Abdomen: Soft, nontender Extremities: 2+ right radial pulse. Left radial artery status post harvest. No significant pitting edema. Bilateral lower extremity varicose veins. No cyanosis. Psychiatric: Affect appears appropriate. Results & Data ([facility]) Vital Signs (Past 12 Hours) Vital Signs Temp Pulse Pulse Resp BP BP Pulse Ox 09/07/21 13:53 79 18 129/89 97 09/07/21 13:45 91 H 18 147/76 H 97 09/07/21 13:06 96.8 F L 69 20 152/70 H 100 PG Care Time/CCT Total # of Minutes Spent Total Time Spent with Patient: Total time spent is greater than 50% in coordination of care (as documented) at patient's floor/unit and/or counseling patient: Coding Level of Care Code 60740 Initial Inpt Care Lvl 3 Diagnoses NSTEMI (non-ST elevated myocardial infarction) I21.4
[2021-09-07] MEDS ORDERED: FUROSEMIDE 40 MG/4 ML VIAL IV ONE (14:15)
[2021-09-07] MEDS ORDERED: ONDANSETRON INJ 2 MG/ML 2 ML VIAL IV STA (14:22)
[2021-09-07] MEDS: MoRPHine SULFATE 2 MG/ML CARP IV PRN ×2 (14:27→14:43)
[2021-09-07] MEDS ORDERED: OPTIRAY 320 125ml IV ONE (14:49)
--- NOTE | 2021-09-07 14:52 | Emergency Department Note ---
Impression & Plan Precordial chest pain, Aortic stenosis, SOB (shortness of breath), CHF (congestive heart failure), Elevated troponin ED Provider Note NAME: JAILENE MAGANA AGE: 71 SEX: F : 1950 ARRIVES VIA: Walk-In INFORMANT: [Patient] ED PROVIDER(S): [Kenneth Mock MD] CHIEF COMPLAINT: Chest pain HISTORY OF PRESENT ILLNESS: The patient is a 71-year-old female presents to the ER with a few hours of central chest pain radiating to her back, arms, jaw. She has been short of breath and sweating. The pain is moderate in severity. The pain seemed to come on around the time of an iron transfusion. She was here at this hospital. The patient does have a known aortic stenosis for which she is scheduled for valve surgery sometime in September. She always feels a bit short of breath but today, she feels quite a bit worse than baseline. There has been no cough, no congestion. She has been in baseline health. She just underwent a cardiac catheterization at [facility] a few weeks ago, she was told that her bypass grafts were not in need of revision and that there was no need for any type of stenting. They were happy with the coronary anatomy. REVIEW OF SYSTEMS: See HPI for pertinent positives and negatives. A total of ten systems were reviewed and were otherwise negative. PMHx/PSHx: See Below SOCIAL HISTORY: See Below. PHYSICAL EXAM: GENERAL: Patient is in mild distress, seems a bit short of breath. HEENT: No acute trauma, normocephalic atraumatic, mucous membranes moist, no nasal congestion, no scleral icterus. NECK: No stridor, no adenopathy, no meningismus, trachea is midline. LUNGS: There are crackles bilaterally at both bases. She has an increased respiratory rate. She seems mildly short of breath. HEART: 3/6 systolic murmur, regular rate and rhythm. ABDOMEN: Soft, nontender, bowel sounds positive, no hernias, no peritonitis. EXTREMITIES: No cyanosis or edema, full range of motion of all the joints without pain or difficulty, no signs for acute trauma. NEUROLOGIC: Oriented x 3, no acute motor or sensory deficits, no focal weakness. SKIN: No rash, no jaundice, no diaphoresis. DIFFERENTIAL DIAGNOSIS: Cardiac ischemia, CHF, aortic dissection, pulmonary embolism, pneumothorax, pneumonia, pericarditis, myocarditis, esophageal rupture, GERD, cholecystitis, pancreatitis, musculoskeletal, as well as other pathologies. EMERGENCY DEPARTMENT COURSE/PROCEDURES: ECG: Indication was chest pain. The ECG shows a normal sinus rhythm with a rate of 60. There are inverted T waves with some ST depression in the anterior leads. No ST elevation. The QTC is 394. Compared to an ECG from 08 September 2012, there are significant changes. The T wave changes in the anterior leads are all new. Repeat ECG: Indication was chest pain. The ECG shows a normal sinus rhythm with a rate of 85. There are inverted T waves with some ST depression in the anteri or leads. There is some very subtle ST elevation across the inferior leads. No PVCs. QTC is 395. Compared to the ECG from earlier today, the subtle changes in the ST waves in the inferior leads appear new Continuous Cardiac Monitoring: An order was placed for continuous cardiac monitoring. The monitor shows a rate of 82 with normal sinus rhythm. Critical Care Note: I have personally spent 64 minutes of critical care time in the direct management of this patient. This includes bedside care, interpretation of diagnostic studies, and testing, discussion with consultants, patient, and family members, and other required patient management activities. This 64 minutes is in excess of all separately billable procedures. MEDICAL DECISION MAKING: There is no leukocytosis or concerning anemia. There is a normal platelet count. Creatinine was a bit elevated but at baseline. No significant electrolyte abnormality. No concerning liver enzyme elevation. Lipase was mildly elevated but not high enough to diagnose pancreatitis. ECG shows a sinus rhythm with deeply inverted T waves in the anterior leads concerning for posterior [place]. Cardiac enzyme testing x1 did show a troponin elevation. Repeat EKG showed similar findings to the first ECG with some additional subtle ST elevation in the inferior leads. Chest x-ray shows what appears to be some heart failure, no pneumonia or pneumothorax. Chest CT did not show aortic dissection or PE. On exam, the patient appeared uncomfortable. The patient was aggressively managed given her EKG findings and complaints. A heart alert was called. The patient was seen by the heart alert team. Dr. Jain did not feel the patient would benefit from cardiac intervention. She has a known aortic stenosis and just recently underwent a cardiac catheterization showing stable grafts and coronaries. He did consider transfer to [facility] where she had her recent catheterization however, [facility] had no beds available. The patient received sublingual nitroglycerin, 2 doses were given. She was placed on 2 inches of nitroglycerin paste. She received IV Lasix, IV Lopressor, IV morphine. She did feel a bit better mostly from the nitroglycerin. Dr. Jain did a second evaluation of the patient while here in the ED. Patient was placed on a nitroglycerin drip to help control her symptoms. The patient is slowly showing some improvement. She is feeling a bit better. Her breathing has eased, she feels less short of breath and has less pain across her chest, arms and shoulders. The patient is being hospitalized. I did speak with the intensive care physician impregnation operator. I spoke with case management, the on-call hospitalist was consulted. In short, the patient appears to be suffering from cardiac ischemia. She has EKG changes, an elevated troponin and feels short of breath with chest pain. She appears to be in heart failure. Hospitalization is clearly warranted. Past Med/Surg History Medical History Anemia Aortic stenosis [id number] -echocardiogram 04/29/2020 Benign essential hypertension Chronic kidney disease, stage III (moderate) Coronary artery disease Diverticular disease GERD without esophagitis Leukopenia Mild mitral regurgitation echocardiogram 04/29/2020 Nausea and vomiting after administration of anesthetic agent Osteoarthritis SBO (small bowel obstruction) Type 2 diabetes mellitus Vaginal fistula Surgical History History of appendectomy History of cardiac cath x2--2002, no stents had CABG and 03/2018 @ [facility] [place]--no stents History of colonoscopy with polypectomy History of gynecological procedure benign vaginal biopsy History of left breast biopsy benign History of lumpectomy left breast--benign History of tooth extraction all teeth History of total hysterectomy with bilateral salpingo-oophorectomy (BSO) S/P CABG x 3 2002 @ [facility] [place]--per pt she was having right neck pain performed a stress test--pt failed sent for heart cath and then immediate CABG ~Follows with Dr. Leahy S/P colon resection S/P epidural steroid injection Family History Brother Myocardial infarction Family history of diabetes mellitus Father Myocardial infarction Mother Myocardial infarction Other No family history of adverse response to anesthesia Denies family history of Ovarian cancer Prostate cancer Breast cancer Colorectal cancer Social History Smoking Status: Former smoker Tobacco Type: Cigarettes Age Started Using Tobacco: 18; Age Quit Using Tobacco: 33; packs per day: 0.5; Second Hand Exposure: No; Hx Alcohol Use: No Hx Substance Use: No Preferred Language: Korean Communication Ability: Effective Visual Impairment: Limited Hearing Ability: Normal Design Teacher Required: No Beliefs That Will Affect Care: None marital status: Current Living Situation: Spouse current occupational status: retired How many Children do You have: 2 Feels Safe at Home: Yes Childhood Exposure to Second-Hand Smoke: No caffeine: Yes during the past year weight has: remained stable Dental Care, Regularly: Yes Physical Activity Frequency: Daily Seatbelt Use: always Sunscreen Use: Yes Assistive Devices: None Allergies Allergies Allergy/AdvReac Type Severity Reaction Status Date / Time codeine Allergy Severe respiratory Verified 09/07/21 13:18 difficulty adhesive Allergy Intermediate skin pulls Verified 09/07/21 13:18 off latex Allergy Mild itchy with Verified 09/07/21 13:18 gloves amoxicillin Allergy Unknown Unknown Verified 09/07/21 13:18 Home Meds Home Medications Medication Instructions Recorded Confirmed blood sugar diagnostic (FreeStyle #10 ea 12/26/18 07/22/21 Test) blood-glucose meter (FreeStyle #1 ea 12/26/18 07/22/21 System Kit) aspirin 81 mg tablet,delayed 81 mg PO HS tab 04/25/19 09/07/21 release fluticasone propionate 50 2 sprays INTRANASAL DAILY PRN gm 04/25/19 09/07/21 mcg/actuation nasal spray,suspension magnesium 250 mg tablet 400 mg PO DAILY tab 07/22/21 09/07/21 Previous Rx's Medication Instructions Recorded atenolol 25 mg tablet 37.5 mg PO QAM #135 tab 07/22/21 omeprazole 20 mg capsule,delayed 20 mg PO DAILYBB #90 cap 07/25/21 release fenofibrate nanocrystallized 145 145 mg PO QAM #90 tab 09/05/21 mg tablet metformin 500 mg tablet 500 mg PO BID #180 tab 09/05/21 Results & Data (ED) Vital Signs Vital Signs - 24 hr 09/07/21 13:06 09/07/21 13:29 09/07/21 13:45 Temperature 36.0 C L Temperature Source Temporal Artery Scan Pulse Rate 69 Pulse Rate [Apical] 91 H Pulse Rate from SpO2 Sensor Pulse Rhythm Regular Pulse Strength Normal Respiratory Rate 20 18 Respiratory Effort / Characteristics Non-Labored Spontaneous Respiratory Depth Normal Respiratory Pattern Regular Blood Pressure 152/70 H Blood Pressure [Left Arm] 147/76 H Blood Pressure Mean 97 Blood Pressure Mean [Left Arm] 99 Blood Pressure Position Sitting Blood Pressure Position [Left Arm] Pulse Oximetry 100 97 Oxygen Delivery Method Room Air Nasal Cannula Nasal Cannula Oxygen Flow Rate 2 2 Sepsis Recent Fever Within 48 Hours No Sepsis New/Unexplained Change in Mental Status No Sepsis Action Taken by Nursing No Action Required 09/07/21 13:53 09/07/21 13:56 09/07/21 14:00 Temperature Temperature Source Pulse Rate 77 68 Pulse Rate [Apical] 79 Pulse Rate from SpO2 Sensor 75 73 Pulse Rhythm Pulse Strength Respiratory Rate 18 15 18 Respiratory Effort / Characteristics Respiratory Depth Respiratory Pattern Blood Pressure 165/84 H Blood Pressure [Left Arm] 129/89 Blood Pressure Mean 111 Blood Pressure Mean [Left Arm] 102 Blood Pressure Position Blood Pressure Position [Left Arm] Pulse Oximetry 97 97 97 Oxygen Delivery Method Nasal Cannula Oxygen Flow Rate 2 Sepsis Recent Fever Within 48 Hours Sepsis New/Unexplained Change in Mental Status Sepsis Action Taken by Nursing 09/07/21 14:09 09/07/21 14:30 09/07/21 14:57 Temperature Temperature Source Pulse Rate 82 83 85 Pulse Rate [Apical] Pulse Rate from SpO2 Sensor 83 85 Pulse Rhythm Pulse Strength Respiratory Rate 18 22 Respiratory Effort / Characteristics Respiratory Depth Respiratory Pattern Blood Pressure 165/84 H 177/77 H 123/57 L Blood Pressure [Left Arm] Blood Pressure Mean 110 79 Blood Pressure Mean [Left Arm] Blood Pressure Position Blood Pressure Position [Left Arm] Pulse Oximetry 98 79 L Oxygen Delivery Method Oxygen Flow Rate Sepsis Recent Fever Within 48 Hours Sepsis New/Unexplained Change in Mental Status Sepsis Action Taken by Nursing 09/07/21 14:59 09/07/21 15:00 09/07/21 15:01 Temperature Temperature Source Pulse Rate 84 86 Pulse Rate [Apical] Pulse Rate from SpO2 Sensor 81 87 Pulse Rhythm Pulse Strength Respiratory Rate 19 Respiratory Effort / Characteristics Respiratory Depth Respiratory Pattern Blood Pressure 110/73 Blood Pressure [Left Arm] Blood Pressure Mean 85 Blood Pressure Mean [Left Arm] Blood Pressure Position Blood Pressure Position [Left Arm] Pulse Oximetry 84 L 90 Oxygen Delivery Method Nasal Cannula Oxygen Flow Rate 4 Sepsis Recent Fever Within 48 Hours Sepsis New/Unexplained Change in Mental Status Sepsis Action Taken by Nursing 09/07/21 15:42 Temperature Temperature Source Pulse Rate Pulse Rate [Apical] 87 Pulse Rate from SpO2 Sensor Pulse Rhythm Pulse Strength Respiratory Rate 16 Respiratory Effort / Characteristics Non-Labored Spontaneous Respiratory Depth Normal Respiratory Pattern Regular Blood Pressure Blood Pressure [Left Arm] 177/94 H Blood Pressure Mean Blood Pressure Mean [Left Arm] 121 Blood Pressure Position Blood Pressure Position [Left Arm] Sitting Pulse Oximetry 99 Oxygen Delivery Method Room Air Oxygen Flow Rate Sepsis Recent Fever Within 48 Hours Sepsis New/Unexplained Change in Mental Status Sepsis Action Taken by [facility]dc Medications Current Medication List: was personally reviewed by me Laboratory Data Attestation: I reviewed the patient's lab results. Result diagrams: 09/07/21 13:34 09/07/21 13:34 Lab Results 09/07/21 09/07/21 09/07/21 Range/Units 13:34 13:34 13:34 WBC 6.48 (4.8-10.8) K/uL RBC 4.40 (4.2-5.4) M/uL Hgb 12.4 (12.0-16.0) g/dL Hct 40.3 (37-47) % MCV 91.6 (80-100) fL MCH 28.2 (25-34) pg MCHC 30.8 L (32-36) g/dL RDW Std Deviation 59.1 H (36.4-46.3) fL RDW Coeff of Elza 17.7 H (11.5-14.5) % Plt Count 281 (130-400) K/uL MPV 8.8 (7.4-10.4) fL Immature Gran % (Auto) 0.2 % Neut % (Auto) 74.7 % Lymph % (Auto) 17.6 % [place] % (Auto) 6.2 % Eos % (Auto) 1.1 % Baso % (Auto) 0.2 % Neut # (Auto) 4.85 (1.4-6.5) K/uL Lymph # (Auto) 1.14 L (1.2-3.4) K/uL [place] # (Auto) 0.40 (0.11-0.59) K/uL Eos # (Auto) 0.07 (0-0.5) K/uL Baso # (Auto) 0.01 (0-0.2) K/uL Immature Gran # (Auto) 0.01 (0.00-0.02) K/uL PT 11.1 (9.0-12.0) Seconds INR 1.0 (0.9-1.1) APTT 24.2 (21.0-31.0) Seconds PTT Ratio 0.9 Sodium 135 L (136-145) mmol/L Potassium 4.2 (3.5-5.1) mmol/L Chloride 103 (98-107) mmol/L Carbon Dioxide 24 (21-32) mmol/L Anion Gap 8 (3-11) BUN 21 (6-23) mg/dl Creatinine 1.42 H (0.6-1.2) mg/dl Est Cr Clr Drug Dosing 37.9 ml/min Est GFR ( Amer) 43.3 ml/min Est GFR (Non-Af Amer) 37.3 ml/min BUN/Creatinine Ratio 14.8 (10-20) Glucose 167 H (70-99(Fasting)) mg/dl Calcium 9.5 (8.5-10.1) mg/dl Total Bilirubin 0.3 (0.2-1.0) mg/dl AST 23 (13-39) U/L ALT 15 (7-52) U/L Alkaline Phosphatase 47 (34-104) U/L Troponin I 0.36 H* (0-0.04) ng/ml Total Protein 7.4 (6.0-8.3) gm/dl Albumin 4.3 (3.4-5.0) gm/dl Globulin 3.1 (2.5-4.0) gm/dl Albumin/Globulin Ratio 1.4 (0.9-2) Lipase 95 H (11-82) U/L SARS-CoV-2, RNA, NAAT (NEGATIVE) 09/07/21 Range/Units 13:43 WBC (4.8-10.8) K/uL RBC (4.2-5.4) M/uL Hgb (12.0-16.0) g/dL Hct (37-47) % MCV (80-100) fL MCH (25-34) pg MCHC (32-36) g/dL RDW Std Deviation (36.4-46.3) fL RDW Coeff of Elza (11.5-14.5) % Plt Count (130-400) K/uL MPV (7.4-10.4) fL Immature Gran % (Auto) % Neut % (Auto) % Lymph % (Auto) % [place] % (Auto) % Eos % (Auto) % Baso % (Auto) % Neut # (Auto) (1.4-6.5) K/uL Lymph # (Auto) (1.2-3.4) K/uL [place] # (Auto) (0.11-0.59) K/uL Eos # (Auto) (0-0.5) K/uL Baso # (Auto) (0-0.2) K/uL Immature Gran # (Auto) (0.00-0.02) K/uL PT (9.0-12.0) Seconds INR (0.9-1.1) APTT (21.0-31.0) Seconds PTT Ratio Sodium (136-145) mmol/L Potassium (3.5-5.1) mmol/L Chloride (98-107) mmol/L Carbon Dioxide (21-32) mmol/L Anion Gap (3-11) BUN (6-23) mg/dl Creatinine (0.6-1.2) mg/dl Est Cr Clr Drug Dosing ml/min Est GFR ( Amer) ml/min Est GFR (Non-Af Amer) ml/min BUN/Creatinine Ratio (10-20) Glucose (70-99(Fasting)) mg/dl Calcium (8.5-10.1) mg/dl Total Bilirubin (0.2-1.0) mg/dl AST (13-39) U/L ALT (7-52) U/L Alkaline Phosphatase (34-104) U/L Troponin I (0-0.04) ng/ml Total Protein (6.0-8.3) gm/dl Albumin (3.4-5.0) gm/dl Globulin (2.5-4.0) gm/dl Albumin/Globulin Ratio (0.9-2) Lipase (11-82) U/L SARS-CoV-2, RNA, NAAT NEGATIVE (NEGATIVE) Administered Medications Nitroglycerin/Dextrose (Nitroglycerin/D5w 100 Mcg/Ml) 250 mls @ 3 mls/hr IV .Q24H [facility]; Protocol Stop: 10/07/21 15:29 Last Admin: 09/07/21 15:47 Dose: 5 mcg/min, 3 mls/hr Documented by: [id number] Cosigned by: [id number] Morphine Sulfate (Morphine Sulfate 2 Mg/Ml Carp) 2 mg IV Q15M PRN PRN Reason: Pain Stop: 09/21/21 14:21 Last Admin: 09/07/21 14:43 Dose: 2 mg Documented by: [id number] Admin: 09/07/21 14:27 Dose: 2 mg Documented by: [id number] Discontinued Medications Aspirin (Aspirin Chew 324 Mg) 324 mg PO NOW STA Stop: 09/07/21 13:30 Last Admin: 09/07/21 13:35 Dose: 324 mg Documented by: [id number] Aspirin (Aspirin Chew 324 Mg) Confirm Administered Dose 324 mg .ROUTE .STK-MED ONE Stop: 09/07/21 13:30 Last Admin: 09/07/21 13:36 Dose: Not Given Documented by: [id number] Furosemide (Furosemide 40 Mg/4 Ml Vial) 40 mg IV ONE ONE Stop: 09/07/21 14:16 Last Admin: 09/07/21 15:00 Dose: 40 mg Documented by: [id number] Ioversol (Optiray 320 125ml) 120 ml IV ONCE ONE Stop: 09/07/21 14:50 Last Admin: 09/07/21 14:52 Dose: 120 ml Documented by: [id number] Metoprolol Tartrate (Metoprolol Tartrate 1 Mg/Ml Vial) 2.5 mg IV NOW STA; Protocol Stop: 09/07/21 14:02 Last Admin: 09/07/21 14:09 Dose: 2.5 mg Documented by: [id number] Miscellaneous (Stat Iv Infusion Titration Per Protocol) 1 ea N/A NOW STA Stop: 09/07/21 15:24 Last Admin: 09/07/21 15:45 Dose: Not Given Documented by: [id number] Nitroglycerin (Nitroglycerin Sl 0.4 Mg/Tab Tab) Confirm Administered Dose 0.4 mg .ROUTE .STK-MED ONE Stop: 09/07/21 13:30 Last Admin: 09/07/21 13:34 Dose: Not Given Documented by: [id number] Nitroglycerin (Nitroglycerin Sl 0.4 Mg/Tab Tab) 0.4 mg SL NOW STA Stop: 09/07/21 13:30 Last Admin: 09/07/21 13:25 Dose: 0.4 mg Documented by: [id number] Nitroglycerin (Nitroglycerin Sl 0.4 Mg/Tab Tab) 0.4 mg SL ONCE ONE Stop: 09/07/21 13:45 Last Admin: 09/07/21 13:42 Dose: 0.4 mg Documented by: [id number] Nitroglycerin (Nitroglycerin Sl 0.4 Mg/Tab Tab) 0.4 mg SL NOW STA Stop: 09/07/21 13:49 Last Admin: 09/07/21 13:52 Dose: Not Given Documented by: [id number] Nitroglycerin (Nitroglycerin 2% Ointment 30gm Tube) Confirm Administered Dose 36 inch .ROUTE .[facility]-MED ONE Stop: 09/07/21 13:50 Last Admin: 09/07/21 13:52 Dose: Not Given Documented by: [id number] Nitroglycerin (Nitroglycerin 2% Ointment 30gm Tube) 2 inch EXT NOW STA Stop: 09/07/21 13:49 Last Admin: 09/07/21 13:52 Dose: 2 inch Documented by: [id number] Ondansetron HCl (Ondansetron Inj 2 Mg/Ml 2 Ml Vial) 4 mg IV NOW STA Stop: 09/07/21 14:23 Last Admin: 09/07/21 14:27 Dose: 4 mg Documented by: [id number] Imaging Data Radiologist's Impression: Chest X-Ray 09/07/21 00:00 XR chest 1V portable CLINICAL HISTORY: CHEST PAIN. COMPARISON STUDY: 08/18/2021 TECHNIQUE: 1 view of the chest FINDINGS: Single frontal view of the chest demonstrates the heart size to be at the upper limits of normal status post previous cardiothoracic surgery. There is a dec reased inspiratory effort with elevation of the hemidiaphragms and crowding of the bronchovascular markings at the lung bases and centrally. The lungs are clear of alveolar opacities. There is no evidence for pleural effusion. There is no evidence for vascular congestion. There is no acute osseous pathology. IMPRESSION: 1. . There is a decreased inspiratory effort with otherwise no acute chest disease. ACT 112: Negative or not required by law. Electronically signed by: Parish Harmon M.D. 09/07/2021 1:58 PM Chest CTA 09/07/21 14:11 CT angio chest dissec wo/w con CLINICAL HISTORY: Status post aortic valve replacement 1 month ago. Previous bypass. Pain radiating into both arms and jaw. Midsternal chest pain and shortness of breath as well. COMPARISON STUDY: Portable chest from 09/07/2021 CT DOSE: 1371.64 mGy.cm TECHNIQUE: CT Angio of the chest was performed.followed by image post process ing with coronal, and sagittal MIP reformats. Contrast Volume: Optiray 320, 120 ml FINDINGS: Vasculature: The aorta is normal in course and caliber with no evidence for aneurysm, dissection or leakage. There is homogeneous perfusion of the pulmonary vasculature bilaterally. No intraluminal filling defects or evidence for pulmonary embolus is seen. Airway: The airway is clear. No endobronchial lesion is identified. Lungs: There are mild centrilobular emphysematous changes involving both upper lobes. Mild dependent edema and atelectasis are seen at the lung bases. The lungs are otherwise clear of acute alveolar opacities, air bronchograms or pulmonary nodules. Pleura: There is no evidence for pleural effusion. There is no evidence for pneumothorax. Mediastinum: There is no evidence for pathologic adenopathy. The heart size is within normal limits status post previous cardiothoracic surgery. Extensive c oronary artery calcification is present. There is also evidence for aortic valve replacement . There is no evidence for pericardial effusion. Upper abdomen:The adrenal glands are normal bilaterally. Osseous structures: There is no acute osseous pathology. Impression: 1. Normal CTA of the aorta and no CTA evidence for pulmonary embolus. 2. Mild centrilobular emphysematous changes with otherwise no acute chest disease. 3. Status post aortic valve replacement and cardiothoracic surgery with extensive coronary artery calcification. ACT 112: Negative or not required by law. Electronically signed by: Parish Harmon M.D. 09/07/2021 3:13 PM Discharge Plan Visit Data Chief Complaint: Chest Pain Stated Complaint: PAIN IN CHEST, ARM, JAW, HISTORY PINCHED NERVES Discharge Problem: Precordial chest pain, Aortic stenosis, SOB (shortness of breath), CHF (congestive heart failure), Elevated troponin Patient Disposition: Admitted As Inpatient Condition: Serious Forms Stand Alone Forms: My [employer] Prescriptions Prescriptions: No Action omeprazole 20 mg capsule,delayed release(DR/EC) 20 mg PO DAILYBB Qty: 90 RF: 1 fenofibrate nanocrystallized 145 mg tablet 145 mg PO QAM Qty: 90 RF: 1 metformin 500 mg tablet 500 mg PO BID Qty: 180 RF: 1 (DME) FreeStyle Test strip See Dose Instructions .ROUTE .MEDSUPPLY Qty: 10 RF: 0 (DME) blood-glucose meter [FreeStyle System Kit] kit See Dose Instructions .ROUTE .MEDSUPPLY Qty: 1 RF: 0 aspirin 81 mg tablet,delayed release (DR/EC) 81 mg PO HS RF: 0 fluticasone propionate 50 mcg/actuation spray,suspension 2 sprays intranasal DAILY PRN (Reason: Congestion) RF: 0 magnesium 250 mg tablet 400 mg PO DAILY RF: 0 atenolol 25 mg tablet 37.5 mg PO QAM Qty: 135 RF: 3 Referrals Referrals: Sean Wakefield CRNP [Primary Care Provider] -
--- NOTE | 2021-09-07 15:15 | CT Scan Report ---
CT angio chest dissec wo/w con CLINICAL HISTORY: Status post aortic valve replacement 1 month ago. Previous bypass. Pain radiating i nto both arms and jaw. Midsternal chest pain and shortness of breath as well. COMPARISON STUDY: Portable chest from 09/07/2021 CT DOSE: 1371.64 mGy.cm TECHNIQUE: CT Angio of the chest was performed.followed by image post processing with coronal, and s agittal MIP reformats. Contrast Volume: Optiray 320, 120 ml FINDINGS: Vasculature: The aorta is normal in course and caliber with no evidence for aneurysm, dissection or l eakage. There is homogeneous perfusion of the pulmonary vasculature bilaterally. No intraluminal fill ing defects or evidence for pulmonary embolus is seen. Airway: The airway is clear. No endobronchial lesion is identified. Lungs: There are mild centrilobular emphysematous changes involving both upper lobes. Mild dependent edema and atelectasis are seen at the lung bases. The lungs are otherwise clear of acute alveolar opa cities, air bronchograms or pulmonary nodules. Pleura: There is no evidence for pleural effusion. There is no evidence for pneumothorax. Mediastinum: There is no evidence for pathologic adenopathy. The heart size is within normal limits s tatus post previous cardiothoracic surgery. Extensive coronary artery calcification is present. There is also evidence for aortic valve replacement . There is no evidence for pericardial effusion. Upper abdomen:The adrenal glands are normal bilaterally. Osseous structures: There is no acute osseous pathology. Impression: 1. Normal CTA of the aorta and no CTA evidence for pulmonary embolus. 2. Mild centrilobular emphysematous changes with otherwise no acute chest disease. 3. Status post aortic valve replacement and cardiothoracic surgery with extensive coronary artery malena cification. ACT 112: Negative or not required by law. Electronically signed by: Parish Harmon M.D. 09/07/2021 3:13 PM
[2021-09-07] MEDS ORDERED: STAT IV Infusion **Titration per Protocol STA (15:23)
--- NOTE | 2021-09-07 15:46 | History & Physical Report ---
Date of Service September 07, 2021 Assessment & Plan (1) Aortic stenosis: Plan: Severe Aortic Stenosis awaiting evaluation at [facility] for TAVR - Now presenting with sustained chest pressure, hypoxia, and dyspnea- evidence of pulmonary congestion - Diuresed 40mg IV x1 - re-dose as needed- - Nitroglycerine for continued chest pain- Noted Troponin 0.36 - Planned Transfer to [facility] upon bed availability - BIPAP for hypoxia/pulmonary edema- 03/22 adjust for adequate VT as well as FIo2 for hypoxia - No further evidence of organ dysfunction or shock noted - ICU for continued care- - ECHO being performed now- intrepreted at bedside by interventional (2) Angina at rest: Plan: As above- Nitroglycerine started titrate to CP free and SBP ~ 120 - BP currently 140-160 - ECHO done - Chest pain relieved with NTG infusion at 5mcg- BP at goal ~ 120 - Is diuresing (3) NSTEMI (non-ST elevated myocardial infarction): Plan: As above- Heparin drip initiated - no bolus - Continue ASA, fenofibrate, BB (4) Dyspnea on exertion: Plan: Secondary to likely worsening aortic valve with pulmonary edema - as above (5) Coronary artery disease: Plan: Recent Jacqui 08/26/21- CAD to bypassed vessels- no plan for intervention with TAVR - appreciate interventional cardiology assistance- follow troponin I and ECGs (6) Chronic kidney disease, stage III (moderate): 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 She is currently chest pain free, with improved pulmonary exam as well as decreased work of breathing. History of Present Illness Chief Complaint: Shortness of breath Primary Care Provider: IXN Nunez 71 YOF with past medical history of: CAD, CABG- 2002 - [facility], Aortic Stenosis, BPH, HLD, colon resection. 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 She has started this process with CATH being performed. Her cath was done on 08/26/21- this is in our system scanned in 08/26/21- noted disaes but no plan to intervene. Her CABG history is ALLISON to LAD, with Y graft to the OM and radial artery bypass to the RCA. Her aortic gradient was 34 with DI-0.18. She presents today with onset of back pain this morning between her shoulder blades and dyspnea. She reports that she gets this with her cervical back pain with some radicular symptoms to her arms, but this morning was worse. She did try heating pack and felt somewhat better, but not improved. She got up to go get her iron infusion today at the transfusion center and by the time she walked in, she was having increase in her dyspnea as well as worsening pain in her back that then felt like a band around her chest. This was associated with tingling and pain in her bilateral arms, again this is not her normal pain she gets. She started her iron transfusion and become dyspneic again with return of the above symptoms. She was transferred to the [facility] where a heart alert was called- her Troponin was 0.36 and CXR noted pulmonary edema. She was given 40mg IV Lasix evaluated by interventional cardiology and requested transfer to [facility]. They have no bed availability at this time. Hospitalist service was consulted for admission as well as ICU. Patient will be placed on NTG drip at this time, follow diuresis with re-dosing likely needed, as well as BiPAP. She is hypoxic on room air or with any movement and is not pain free at this time. CTA of the chest for dissection was negative for dissection and negative for large PE. Continue to note emphysematous thickening and pulmonary edema. Patient improved with addition of NTG and lasix- ECHO was performed at bedside concern for NSTEMI and heparin infusion started. Admit ICU COVID test on admission is: NEGATIVE Allergies Allergy/AdvReac Type Severity Reaction Status Date / Time codeine Allergy Severe respiratory Verified 09/07/21 13:18 difficulty adhesive Allergy Intermediate skin pulls Verified 09/07/21 13:18 off latex Allergy Mild itchy with Verified 09/07/21 13:18 gloves amoxicillin Allergy Unknown Unknown Verified 09/07/21 13:18 Home Medications Medication Instructions Recorded Confirmed Type blood sugar diagnostic (FreeStyle #10 ea 12/26/18 07/22/21 History Test) blood-glucose meter (FreeStyle #1 ea 12/26/18 07/22/21 History System Kit) aspirin 81 mg tablet,delayed 81 mg PO HS tab 04/25/19 09/07/21 History release fluticasone propionate 50 2 sprays INTRANASAL DAILY PRN gm 04/25/19 09/07/21 History mcg/actuation nasal spray,suspension atenolol 25 mg tablet 37.5 mg PO QAM #135 tab 07/22/21 09/07/21 Rx magnesium 250 mg tablet 400 mg PO DAILY tab 07/22/21 09/07/21 History omeprazole 20 mg capsule,delayed 20 mg PO DAILYBB #90 cap 07/25/21 09/07/21 Rx release fenofibrate nanocrystallized 145 145 mg PO QAM #90 tab 09/05/21 09/07/21 Rx mg tablet metformin 500 mg tablet 500 mg PO BID #180 tab 09/05/21 09/07/21 Rx Past Med/Surg History Medical History Anemia Aortic stenosis [id number] -echocardiogram 04/29/2020 Benign essential hypertension Chronic kidney disease, stage III (moderate) Coronary artery disease Diverticular disease GERD without esophagitis Leukopenia Mild mitral regurgitation echocardiogram 04/29/2020 Nausea and vomiting after administration of anesthetic agent Osteoarthritis SBO (small bowel obstruction) Type 2 diabetes mellitus Vaginal fistula Surgical History History of appendectomy History of cardiac cath x2--2002, no stents had CABG and 03/2018 @ [facility]--no stents History of colonoscopy with polypectomy History of gynecological procedure benign vaginal biopsy History of left breast biopsy benign History of lumpectomy left breast--benign History of tooth extraction all teeth History of total hysterectomy with bilateral salpingo-oophorectomy (BSO) S/P CABG x 3 2002 @ [facility]--per pt she was having right neck pain performed a stress test--pt failed sent for heart cath and then immediate CABG ~Follows with Dr. Leahy S/P colon resection S/P epidural steroid injection Family History Brother Myocardial infarction Family history of diabetes mellitus Father Myocardial infarction Mother Myocardial infarction Other No family history of adverse response to anesthesia Denies family history of Ovarian cancer Prostate cancer Breast cancer Colorectal cancer Social History Smoking Status: Never smoker Tobacco Type: Cigarettes Age Started Using Tobacco: 18; Age Quit Using Tobacco: 33; packs per day: 0.5; Second Hand Exposure: No; Hx Alcohol Use: No Hx Substance Use: No Preferred Language: Swedish Communication Ability: Effective Visual Impairment: Limited Hearing Ability: Normal Out Patient Therapist Required: No Beliefs That Will Affect Care: None marital status: Current Living Situation: Spouse current occupational status: retired How many Children do You have: 2 Feels Safe at Home: Yes Childhood Exposure to Second-Hand Smoke: No caffeine: Yes during the past year weight has: remained stable Dental Care, Regularly: Yes Physical Activity Frequency: Daily Seatbelt Use: always Sunscreen Use: Yes Assistive Devices: Denture - Upper, Denture - Lower and Glasses Review of Systems Review of Systems: REVIEW OF SYSTEMS: Constitutional: No fever, sweats or chills Eyes: No diplopia, no worsening or blurred vision ENT: normal hearing, no trouble swallowing Respiratory: (+) cough, sputum, dyspnea at rest or on exertion Cardiovascular: (+)chest pain, tightness or palpitations Abdomen: No pain, nausea, vomiting, diarrhea or constipation Musculoskeletal: No joint pain, calf pain, swelling Neurologic: No weakness, numbness/tingling, or balance problems Psychiatric: No anxiety or depression Skin: No rash or itch Physical Exam Physical Exam: PHYSICAL EXAM: General: awake, alert, no apparent distress Head: Normocephalic, atraumatic ENT: PERRL, EOMI, no pharyngeal exudate, mucous membranes moist Neuro: AAO x 3, speech clear and appropriate, strength intact bilaterally 5/5, sensation intact and equal all extremities and dermatomes, no pronator drift Chest: equal rise and fall of the chest, dyspneic, crackles throughout lower lung lee with expiratory wheeze bilaterally, on 2LNC Cardiac: Regular rate and rhythm, telemetry reviewed, skin warm dry, cap refill <3 seconds, peripheral pulse 2+, Trace edema to lower extremities again with strong pulses and warm GI: NABS x 4 quadrants, soft, nontender to palpation, no rebound, guarding or tenderness : Spontaneously voiding, no pain, no CVA tenderness, Extremities: Normal inspection, no peripheral edema or erythema, calfs nontender to palpation Psych: Normal mood and affect Skin: no rash or erythema Results & Data Results & Data ([facility]) Vital Signs (Past 12 Hours) Vital Signs Temp Pulse Pulse Resp BP BP Pulse Ox 09/07/21 15:01 86 90 09/07/21 15:00 110/73 09/07/21 14:59 84 19 84 L 09/07/21 14:57 85 22 123/57 L 79 L 09/07/21 14:30 83 18 177/77 H 98 09/07/21 14:09 82 165/84 H 09/07/21 14:00 68 18 165/84 H 97 09/07/21 13:56 77 15 97 09/07/21 13:53 79 18 129/89 97 09/07/21 13:45 91 H 18 147/76 H 97 09/07/21 13:06 36.0 C L 69 20 152/70 H 100 Laboratory Results Abnormal lab results 09/07/21 09/07/21 Range/Units 13:34 13:34 MCHC 30.8 L (32-36) g/dL RDW Std Deviation 59.1 H (36.4-46.3) fL RDW Coeff of Elza 17.7 H (11.5-14.5) % Lymph # (Auto) 1.14 L (1.2-3.4) K/uL Sodium 135 L (136-145) mmol/L Creatinine 1.42 H (0.6-1.2) mg/dl Glucose 167 H (70-99(Fasting)) mg/dl Troponin I 0.36 H* (0-0.04) ng/ml Lipase 95 H (11-82) U/L Diagnostic Findings Chest X-Ray 09/07/21 00:00 XR chest 1V portable CLINICAL HISTORY: CHEST PAIN. COMPARISON STUDY: 08/18/2021 TECHNIQUE: 1 view of the chest FINDINGS: Single frontal view of the chest demonstrates the heart size to be at the upper limits of normal status post previous cardiothoracic surgery. There is a decreased inspiratory effort with elevation of the hemidiaphragms and crowding of the bronchovascular markings at the lung bases and centrally. The lungs are clear of alveolar opacities. There is no evidence for pleural effusion. There is no evidence for vascular congestion. There is no acute osseous pathology. IMPRESSION: 1. . There is a decreased inspiratory effort with otherwise no acute chest disease. ACT 112: Negative or not required by law. Electronically signed by: Parish Harmon M.D. 09/07/2021 1:58 PM Chest CTA 09/07/21 14:11 CT angio chest dissec wo/w con CLINICAL HISTORY: Status post aortic valve replacement 1 month ago. Previous bypass. Pain radiating into both arms and jaw. Midsternal chest pain and shortness of breath as well. COMPARISON STUDY: Portable chest from 09/07/2021 CT DOSE: 1371.64 mGy.cm TECHNIQUE: CT Angio of the chest was performed.followed by image post processing with coronal, and sagittal MIP reformats. Contrast Volume: Optiray 320, 120 ml FINDINGS: Vasculature: The aorta is normal in course and caliber with no evidence for aneurysm, dissection or leakage. There is homogeneous perfusion of the pulmonary vasculature bilaterally. No intraluminal filling defects or evidence for pulmonary embolus is seen. Airway: The airway is clear. No endobronchial lesion is identified. Lungs: There are mild centrilobular emphysematous changes involving both upper lobes. Mild dependent edema and atelectasis are seen at the lung bases. The lungs are otherwise clear of acute alveolar opacities, air bronchograms or pulmonary nodules. Pleura: There is no evidence for pleural effusion. There is no evidence for pneumothorax. Mediastinum: There is no evidence for pathologic adenopathy. The heart size is within normal limits status post previous cardiothoracic surgery. Extensive coronary artery calcification is present. There is also evidence for aortic valve replacement . There is no evidence for pericardial effusion. Upper abdomen:The adrenal glands are normal bilaterally. Osseous structures: There is no acute osseous pathology. Impression: 1. Normal CTA of the aorta and no CTA evidence for pulmonary embolus. 2. Mild centrilobular emphysematous changes with otherwise no acute chest disease. 3. Status post aortic valve replacement and cardiothoracic surgery with extensive coronary artery calcification. ACT 112: Negative or not required by law. Electronically signed by: Parish Harmon M.D. 09/07/2021 3:13 PM ECG Additional Comments: Normal sinus rhythm ST & T wave abnormality, consider anterolateral ischemia Abnormal ECG When compared with ECG of 07-SEP-2021 13:13, (unconfirmed) ST no longer depressed in Inferior leads Code Status & VTE Plan Code Status CODE: FULL VTE: SCDS, Heparin 5000 units subq tid VTE Prophylaxis Plan VTE Prophylaxis will be ordered: Yes Supervising Physician Co-Signing Physician Notes I personally saw and examined the patient. I verified all hayward points and agree with XIN High with the following exceptions and/or additions: 71 year old female admission for shortness of breath and chest pain. Chest pain radiating to back and jaw with associated diaphoresis. Having symptoms prior to iron transfusion but suspect made worse with this. O/E WD/WN, no respiratory distress when seen, Chest - Bibasal crackles, HS1+2, early KRISH loudest LUSB 3/6, Abdo SNT A/P Shortness of breath and chest pain - suspect acute coronary syndrome with increased troponin and echocardiogram results. However unclear how much aortic stenosis and heart failure contributing towards her symptoms. Discussed with ER physician and recommended intravenous nitroglycerin and admission to ICU. Will start on heparin IV low dose drip. Appreciate cardiology recommendations. Recommend transfer to [facility] when bed available. Appears improved since nitroglycerin started. Acute congestive heart failure with borderline ejection fraction, mode-severe aortic stenosis - Lasix 40mg IV given in ER, monitor I&Os, will defer further diuresis to ICU team. B12 deficiency - 143 pg /ml on August 18, start cyanocobalamin 1mg IM daily PG Care Time/CCT Total # of Minutes Spent Total Time Spent with Patient: Total time spent is greater than 50% in coordination of care (as documented) at patient's floor/unit and/or counseling patient: 65 minutes of critical care time dedicated to patient. Coding Level of Care Code 16373 Initial Inpt Care Lvl 3 Diagnoses Aortic stenosis I35.0 Angina at rest I20.8 Dyspnea on exertion R06.00 Coronary artery disease I25.10 Chronic kidney disease, stage III (moderate) N18.3 Type 2 diabetes mellitus E11.9 Diabetes mellitus complication status: without complication Diabetes mellitus senior living insulin use: without senior living use Hyperlipidemia E78.5 NSTEMI (non-ST elevated myocardial infarction) I21.4 (1) Type 2 diabetes mellitus Diabetes mellitus complication status: without complication Diabetes mellitus medical terminologist insulin use: without senior living use Qualified Code(s): E11.9 - Type 2 diabetes mellitus without complications
[2021-09-07] MEDS: NITROGLYCERIN/D5W 100MCG/ML 250 ML IV SCH (15:47)
--- NOTE | 2021-09-07 17:06 | Critical Care Consultation ---
Date of Consultation September 07, 2021 Assessment & Plan (1) NSTEMI (non-ST elevated myocardial infarction): (2) Angina at rest: (3) Aortic stenosis: (4) Pulmonary edema: CTA chest 09/07/2021 personally reviewed: Interlobular thickening appreciated bilaterally upper and lower lobes Increased vascular congestion in the lower lobes with groundglass opacities No mediastinal lymphadenopathy EKG 09/07/2021: ST depression appreciated in the lateral leads, normal sinus rhythm, normal axis --NSTEMI with angina Started on nitro drip Trend troponins Keep SBP around 150-140 Consider diuretics if patient's urine output is not good Follow-up 2D echo --History of aortic stenosis Follows up with [facility] --CKD Monitor BUNs/creatinine Avoid nephrotoxic medication --Hypertension Resume home blood pressure medication --Diabetes type 2 Continue with ICU hypoglycemia protocol --History of coronary artery disease S/p CABG 2002 --Probable [facility]ITA Outpatient polysomnography BiPAP nightly and as needed shortness of breath --Ex-smoker [id number] smoking history, quit 1987 Outpatient PFTs and based on PFTs decide whether patient needs to be on any inhalers --Prophylaxis VTE: Heparin drip GI: Omeprazole Lines: Peripheral Diet: Cardiac Plan: Continue with nitro drip, keep blood pressure around systolic 150-140 Follow cardiology recommendations Follow-up 2D echo BiPAP nightly and as needed shortness of breath I have personally spent 55 minutes of critical care time in the direct management of this patient. This is a life/limb threatening event. This includes time spent evaluating patient, direct bedside care, chart review, placing orders, interpretation of diagnostic studies, discussion with consultants, patient, and family members, as well as other required patient management activities. This time is exclusive of all separately billable procedures, and teaching time and separate from and in addition to any other critical care service time. Please note the above document was generated using voice recognition software. It may contain grammatical, syntax or spelling errors. History of Present Illness History of Present Illness 71-year-old female came to the ER with complaints of chest pain rating to both arm along with shortness of breath Past medical history: CABG in 2002, aortic stenosis, dyslipidemia, BPH, colon resection. Patient was getting iron transfusion at the cancer center when she started complaining of chest pain. She has some chest tightness even on her way to the cancer center. The pain was radiating to the right arm followed by the left arm. Denied any dizziness at that time In the ED patient was found to have ST depression on the lateral leads. Patient was started on nitro drip in the ED At the time of examination her blood pressure was systolic in the 150s, she denied any chest pain she actually felt better after coming to the hospital She denies any nausea or vomiting No dizziness, no headache, no nausea, no vomiting Denies any cough No fever or chills. Social history: Approximately [id number] smoking history quit in 1987. Allergies Allergy/AdvReac Type Severity Reaction Status Date / Time codeine Allergy Severe respiratory Verified 09/07/21 13:18 difficulty adhesive Allergy Intermediate skin pulls Verified 09/07/21 13:18 off latex Allergy Mild itchy with Verified 09/07/21 13:18 gloves amoxicillin Allergy Unknown Unknown Verified 09/07/21 13:18 Home Medications Medication Instructions Recorded Confirmed Type blood sugar diagnostic (FreeStyle #10 ea 12/26/18 07/22/21 History Test) blood-glucose meter (FreeStyle #1 ea 12/26/18 07/22/21 History System Kit) aspirin 81 mg tablet,delayed 81 mg PO HS tab 04/25/19 09/07/21 History release fluticasone propionate 50 2 sprays INTRANASAL DAILY PRN gm 04/25/19 09/07/21 History mcg/actuation nasal spray,suspension atenolol 25 mg tablet 37.5 mg PO QAM #135 tab 07/22/21 09/07/21 Rx magnesium 250 mg tablet 400 mg PO DAILY tab 07/22/21 09/07/21 History omeprazole 20 mg capsule,delayed 20 mg PO DAILYBB #90 cap 07/25/21 09/07/21 Rx release fenofibrate nanocrystallized 145 145 mg PO QAM #90 tab 09/05/21 09/07/21 Rx mg tablet metformin 500 mg tablet 500 mg PO BID #180 tab 09/05/21 09/07/21 Rx Patient History Medical History Anemia Aortic stenosis [id number] -echocardiogram 04/29/2020 Benign essential hypertension Chronic kidney disease, stage III (moderate) Coronary artery disease Diverticular disease GERD without esophagitis Leukopenia Mild mitral regurgitation echocardiogram 04/29/2020 Nausea and vomiting after administration of anesthetic agent Osteoarthritis SBO (small bowel obstruction) Type 2 diabetes mellitus Vaginal fistula Surgical History History of appendectomy History of cardiac cath x2--2002, no stents had CABG and 03/2018 @ [facility]no stents History of colonoscopy with polypectomy History of gynecological procedure benign vaginal biopsy History of left breast biopsy benign History of lumpectomy left breast--benign History of tooth extraction all teeth History of total hysterectomy with bilateral salpingo-oophorectomy (BSO) S/P CABG x 3 2002 @ [facility]--per pt she was having right neck pain performed a stress test--pt failed sent for heart cath and then immediate CABG ~Follows with Dr. Leahy S/P colon resection S/P epidural steroid injection Family History Brother Myocardial infarction Family history of diabetes mellitus Father Myocardial infarction Mother Myocardial infarction Other No family history of adverse response to anesthesia Denies family history of Ovarian cancer Prostate cancer Breast cancer Colorectal cancer Social History Smoking Status: Former smoker Tobacco Type: Cigarettes Age Started Using Tobacco: 18; Age Quit Using Tobacco: 33; packs per day: 0.5; Second Hand Exposure: No; Hx Alcohol Use: No Hx Substance Use: No Preferred Language: French Communication Ability: Effective Visual Impairment: Limited Hearing Ability: Normal 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 Beliefs That Will Affect Care: None marital status: Current Living Situation: Spouse current occupational status: retired How many Children do You have: 2 Feels Safe at Home: Yes Childhood Exposure to Second-Hand Smoke: No caffeine: Yes during the past year weight has: remained stable Dental Care, Regularly: Yes Physical Activity Frequency: Daily Seatbelt Use: always Sunscreen Use: Yes Assistive Devices: None Review of Systems Review of Systems: All systems reviewed & are unremarkable except as noted in HPI & below Physical Exam Physical Exam: Constitutional: No acute distress HEENT: EOMI, PERRLA Respiratory system: Decreased air entry bilaterally, no wheeze, rhonchi, mild crackles bilateral lower lobes CVS: S1-S2 positive, positive 3 out of 6 systolic murmur appreciated best at the aorta Abdomen: Soft, nontender, nondistended, positive bowel sounds x4, obese Extremities: +2 pulses bilaterally radialis/ dorsalis pedis, no cyanosis, no edema Neuro: Awake alert oriented x3 Psych: Normal mood and affect G/U: No De Oliveira Skin: no rashes, warm and dry Lymphatic: no cervical or axillary lymphadenopathy Results & Data Results & Data ([facility]) Vital Signs (Past 12 Hours) Vital Signs Temp Pulse Pulse Resp BP BP Pulse Ox 09/07/21 15:42 87 16 177/94 H 99 09/07/21 15:01 86 90 09/07/21 15:00 110/73 09/07/21 14:59 84 19 84 L 09/07/21 14:57 85 22 123/57 L 79 L 09/07/21 14:30 83 18 177/77 H 98 09/07/21 14:09 82 165/84 H 09/07/21 14:00 68 18 165/84 H 97 09/07/21 13:56 77 15 97 09/07/21 13:53 79 18 129/89 97 09/07/21 13:45 91 H 18 147/76 H 97 09/07/21 13:06 36.0 C L 69 20 152/70 H 100 Laboratory Results 09/07/21 13:34 09/07/21 13:34 Coding Level of Care Code Critical Care 1st 30-74 mins Diagnoses NSTEMI (non-ST elevated myocardial infarction) I21.4 Angina at rest I20.8 Aortic stenosis I35.0 Pulmonary edema J81.1 Time Spent (min) 55
--- NOTE | 2021-09-07 17:15 | Electrocardiogram Report ---
Test Reason : Blood Pressure : / mmHG Vent. Rate : 085 BPM Atrial Rate : 085 BPM P-R Int : 186 ms QRS Dur : 070 ms QT Int : 332 ms P-R-T Axes : 047 009 109 degrees QTc Int : 395 ms Normal sinus rhythm Abnormal ECG When compared with ECG of 07-SEP-2021 13:13, (unconfirmed) ST no longer depressed in Inferior leads Confirmed by Chapin Gamez ([id number]) on 09/07/2021 5:14:43 PM Referred By: REFERRED SELF Confirmed By:Cody Gamez
--- NOTE | 2021-09-07 17:16 | Electrocardiogram Report ---
Test Reason : Blood Pressure : / mmHG Vent. Rate : 060 BPM Atrial Rate : 060 BPM P-R Int : 150 ms QRS Dur : 084 ms QT Int : 394 ms P-R-T Axes : 040 031 107 degrees QTc Int : 394 ms Normal sinus rhythm Marked ST abnormality, possible septal subendocardial injury Abnormal ECG When compared with ECG of 08-SEP-2012 15:27, ST now depressed in Inferior leads ST more depressed Anterior leads Nonspecific T wave abnormality now evident in Inferior leads T wave inversion now evident in Anterior leads Confirmed by Chapin Gamez ([id number]) on 09/07/2021 5:16:04 PM Referred By: Confirmed By:Cody Gamez
--- NOTE | 2021-09-07 17:51 | XCELERA ---
[id number]
[2021-09-07 18:00] LABS: INR 1.1 (0.9-1.1); Partial Thromboplastin Ratio 0.9; Partial Thromboplastin Time 24.1 Seconds (21.0-31.0); Prothrombin Time 11.3 Seconds (9.0-12.0)
[2021-09-07] MEDS ORDERED: Heparin IV Adult Wt-Based Low-Dose *NO* Bolus Protocol IV SCH (18:45)
[2021-09-07 18:59] LABS: iSTAT Creatinine 1.4 mg/dl (0.6-1.3); iSTAT Hemoglobin 13.9 g/dl (12.0-16.0); iSTAT Ionized Calcium 1.22 mmol/l (1.12-1.32); iSTAT Potassium 4.4 mmol/L (3.3-5.0)
[2021-09-07] MEDS ORDERED: HEPARIN 25000 UNIT/500 ML D5W IV ONE (19:53)
[2021-09-07] MEDS ORDERED: FLUTICASONE PROPIONATE NA SPR 16 GM BTL NAE PRN (20:19)
[2021-09-07] MEDS ORDERED: ICU PROTOCOL FOR HYPERGLYCEMIA SCH (20:19)
[2021-09-07] MEDS ORDERED: ICU PROTOCOL FOR HYPERGLYCEMIA PRN (20:19)
[2021-09-07] MEDS ORDERED: LEVALBUTEROL HCL 0.63 MG/3 ML NEB INH PRN (20:19)
[2021-09-07] MEDS: HEPARIN SODIUM/DEXTROSE 25,000 UNITS/500 ML BAG IV SCH (20:39)
[2021-09-07] MEDS: ASPIRIN 81 MG ECTAB PO SCH (20:54)
[2021-09-08] MEDS ORDERED: MoRPHine SULFATE 2 MG/ML CARP IV STA ×2 (00:57→05:23)
[2021-09-08 02:04] LABS: Troponin I > 73.00 ng/ml (0-0.04)
[2021-09-08 02:08] LABS: Anion Gap 9 (3-11); BUN Creatinine Ratio 15.9 (10-20); Blood Urea Nitrogen 20 mg/dl (6-23); Carbon Dioxide 25 mmol/L (21-32); Chloride 100 mmol/L (98-107); Creatinine Clr Calc Pharmacy 42.3 ml/min; Est GFR (Non-African American) 43.1 ml/min; Glucose 152 mg/dl (70-99(Fasting)); Magnesium 1.6 mg/dl (1.7-2.4); Phosphorus 4.4 mg/dl (2.5-4.9); Potassium 4.4 mmol/L (3.5-5.1); Sodium 134 mmol/L (136-145)
[2021-09-08 04:15] LABS: Basophils # (auto) 0.01 K/uL (0-0.2); Basophils % (auto) 0.2 %; Eosinophils # (auto) 0.02 K/uL (0-0.5); Eosinophils % (auto) 0.4 %; Hematocrit (blood only) 34.8 % (37-47); Immature Granulocytes # (auto) 0.01 K/uL (0.00-0.02); Immature Granulocytes % (auto) 0.2 %; Lymphocytes # (auto) 0.76 K/uL (1.2-3.4); Lymphocytes % (auto) 13.7 %; Mean Corpuscular Hemoglobin 28.2 pg (25-34); Mean Corpuscular Hgb Conc 31.6 g/dL (32-36); Mean Corpuscular Volume 89.2 fL (80-100); Mean Platelet Volume 9.2 fL (7.4-10.4); Monocytes # (auto) 0.49 K/uL (0.11-0.59); Monocytes % (auto) 8.9 %; Neutrophils # (auto) 4.24 K/uL (1.4-6.5); Neutrophils % (auto) 76.6 %; Platelet Count 266 K/uL (130-400); RDW Coefficient of Variation 17.9 % (11.5-14.5); RDW Standard Deviation 58.7 fL (36.4-46.3); White Blood Count 5.53 K/uL (4.8-10.8)
[2021-09-08 04:17] LABS: Partial Thromboplastin Time 27.3 Seconds (21.0-31.0)
[2021-09-08 04:24] LABS: BUN Creatinine Ratio 15.3 (10-20); Calcium 9.1 mg/dl (8.5-10.1); Potassium 4.2 mmol/L (3.5-5.1)
[2021-09-08] MEDS ORDERED: HEPARIN IV BOLUS 4,500 UNITS in SYRINGE 0 ML IV ONE (05:00)
[2021-09-08] MEDS: MAGNESIUM SULFATE / D5W 1 GM/100 ML BAG IV SCH ×2 (05:34→07:24)
[2021-09-08] MEDS: PANTOprazole 40 MG TAB PO SCH (05:34)
--- NOTE | 2021-09-08 08:50 | Critical Care Progress Note ---
Date of Service September 08, 2021 Assessment & Plan (1) Aortic stenosis: (2) Elevated troponin: (3) NSTEMI (non-ST elevated myocardial infarction): (4) Dyspnea on exertion: (5) Precordial chest pain: Plan: ICU Assessment and Plans Reason Critically Ill: 71-year-old female here with a PMHx significant for aortic stenosis CABG CAD CKDIII DM2 HLD who presented with chest pain SOB and who was admitted for NSTEMI. Neuro - [facility] ICU: NEGATIVE Sedation: none Analgesia: none Cardiac - EKG 09/07/2021: ST depression appreciated in the lateral leads, normal sinus rhythm, normal axis NSTEMI with angina Started on nitro drip, heparin drip Trend troponins, >73 Keep SBP around 150-140 Recieved lasix in ED, Consider diuretics if patient hypoxic 2D echo: EF45% new LV dysfunction, mod-sev , mod AR, eccentric mod MR History of aortic stenosis Follows up with [place] Awaiting transfer for Aortic valve replacement Hypertension/HLD Resume home metoprolol and fenofibrate History of coronary artery disease S/p CABG 2002 on daily ASA 81mg Respiratory - CTA chest 09/07/2021: Interlobular thickening appreciated bilaterally upper and lower lobes Increased vascular congestion in the lower lobes with groundglass opacities No mediastinal lymphadenopathy Probable CONCHITA Outpatient polysomnography BiPAP nightly and as needed shortness of breath Ex-smoker [id number] smoking history, quit 1987 Outpatient PFTs and based on PFTs decide whether patient needs to be on any inhalers GI - Heat healthy DM2 diet Protonix 40mg PO daily RENAL/LYTES - No significant electrolyte derangement. Replace lytes as needed. CKD Monitor BUNs/creatinine Avoid nephrotoxic medication - No concerns at this time. I/O: -168, 600 urine ENDO - Diabetes type 2, sliding scale insulin ordered HEME - Stable H&H. Will monitor for any drops in the setting of Heparin gtt ID - No concerns for infection at this point. INTEGUMENTARY - skin dry, intact LINES/IV ACCESS - PIVs intact. DVT PROPHYLAXIS - Heparin drip Thank you for allowing us to be part of this patient's care. Please refer to []'s documentation for any further recommendations. Admission and Anticipated Discharge Date Admission Date: September 07, 2021 Supervising Physician Co-Signing Physician Notes Dr. Yun was the resident-physician during care of patient. I separately evaluated patient for hayward portions of the history and the exam. I was present during the critical portion of medical decision making, and I discussed the case with the resident. I generally agree with the findings and plan except for any additions/exceptions noted. Patient seen and examined bedside. No acute distress, no dressings overnight She was on and off nitro at the time of examination She stated that she feels well. Did complain of some leg cramping overnight No headache, no nausea, no vomiting Constitutional: No acute distress HEENT: EOMI, PERRLA Respiratory system: Decreased air entry bilaterally, no wheeze, rhonchi, mild crackles bilateral lower lobes CVS: S1-S2 positive, positive 3 out of 6 systolic murmur appreciated best at the aorta Abdomen: Soft, nontender, nondistended, positive bowel sounds x4, obese Extremities: +2 pulses bilaterally radialis/ dorsalis pedis, no cyanosis, no edema Neuro: Awake alert oriented x3 Psych: Normal mood and affect G/U: No De Oliveira --Prophylaxis VTE: Heparin drip GI: Pantoprazole Lines: Peripheral Diet: Cardiac Plan: In/out: -28, urine output 600 Magnesium being replaced Patient is doing better. We will try to take her off nitro drip gradually Ideation fraction does seem to be decreased compared to before currently being 45% This could be from the acute event that she had I did speak with Dr. Lai. No intervention from their perspective. Patient will likely have medical management I have personally spent 37 minutes of critical care time in the direct management of this patient. This is a life/limb threatening event. This includes time spent evaluating patient, direct bedside care, chart review, placing orders, interpretation of diagnostic studies, discussion with consultants, patient, and family members, as well as other required patient management activities. This time is exclusive of all separately billable procedures, and teaching time and separate from and in addition to any other critical care service time. Please note the above document was generated using voice recognition software. It may contain grammatical, syntax or spelling errors. Subjective Patient seen at bedside, calm comfortable cooperative, she states she has some minor chest discomfort, SOB when walking that resolves with rest, some leg cram ping when she got lasix overnight, but otherwise feels much better compared to time of admission. Her last bowel movement was yesterday morning, she takes daily stool softeners due to recent colon surgery. Patient is aware she is waiting for transfer for her aortic valve replacement. No acute events overnight. Review of Systems Review of Systems: Negative fever chills Negative headache dizziness Negative chest pain palpitations SOB Negative nausea vomitting diarrhea constipation Negative numbness tingling rash swelling Physical Exam Constitutional: WD/WN, vitals as above + obese, cooperative and comfortable Eyes: PERRL, conjunctivae normal, anicteric sclerae ENMT: external ear and nose normal, oropharynx normal Neck: trachea midline, no thyromegaly Respiratory: normal respiratory effort, lungs clear to auscultation Cardiovascular: Rate/Rhythm: regular rate and regular rhythm Heart Sounds: normal S1, normal S2 and + murmur (aortic) Extremities: normal capillary refill Gastrointestinal (Abdomen): normal bowel sounds, soft, nontender, no hepatosplenomegaly Skin: no rashes, warm and dry Psychiatric: A+Ox3, euthymic affect Lymphatic: no cervical or axillary lymphadenopathy Results & Data Results & Data ([facility]) Vital Signs (Past 12 Hours) Vital Signs Temp Pulse Pulse Resp BP BP Pulse Ox 09/08/21 08:01 83 18 117/65 97 09/08/21 08:00 82 17 99 09/08/21 07:45 76 19 117/61 97 09/08/21 07:31 83 14 125/71 95 09/08/21 07:30 74 17 98 09/08/21 07:22 36.8 C 09/08/21 07:15 76 20 123/64 97 09/08/21 07:00 74 21 107/73 96 09/08/21 06:45 73 18 100/58 L 96 09/08/21 06:30 71 17 109/69 96 09/08/21 06:15 70 15 101/61 96 09/08/21 06:00 70 17 92/54 L 96 09/08/21 05:46 77 20 86/58 L 96 09/08/21 05:38 66 19 83/55 L 97 09/08/21 05:30 69 18 98/62 L 98 09/08/21 05:16 92 H 23 102/75 97 09/08/21 05:00 79 17 134/77 97 09/08/21 04:45 79 18 126/70 97 09/08/21 04:30 76 21 116/68 97 09/08/21 04:15 76 18 97/67 L 97 09/08/21 04:00 76 15 121/74 97 09/08/21 03:45 76 28 H 116/71 97 09/08/21 03:30 76 16 111/76 97 09/08/21 03:02 82 24 130/85 100 09/08/21 03:00 88 14 96 09/08/21 02:30 78 23 121/68 96 09/08/21 02:15 75 25 H 118/65 95 09/08/21 02:01 74 18 116/69 97 09/08/21 02:00 85 18 94 09/08/21 01:45 77 30 H 124/60 95 09/08/21 01:30 71 26 H 111/66 96 09/08/21 01:15 80 17 112/65 95 09/08/21 01:01 77 24 101/51 L 96 09/08/21 01:00 64 15 96 09/08/21 00:45 92 H 16 138/77 98 09/08/21 00:30 74 16 113/66 97 09/08/21 00:15 77 16 113/68 96 09/08/21 00:00 76 16 115/62 96 09/07/21 23:30 76 18 126/68 98 09/07/21 23:15 77 17 122/68 99 09/07/21 23:00 84 25 H 112/65 99 09/07/21 22:46 89 18 117/62 98 09/07/21 22:30 76 16 108/73 96 09/07/21 22:15 77 18 121/72 96 09/07/21 22:00 78 18 120/64 95 09/07/21 21:45 74 16 119/72 98 09/07/21 21:30 83 21 119/69 100 09/07/21 21:16 84 21 123/67 100 09/07/21 21:00 36.9 C 79 75 22 129/71 121/75 99 Resident Activity Tracking Resident Involvement: Resident Care Provided Care Provided: Adult Hospital Medicine (1) Aortic stenosis Cardiac valve disease etiology: etiology unspecified Qualified Code(s): I35.0 - Nonrheumatic aortic (valve) stenosis
[2021-09-08] MEDS ORDERED: ATENOLOL 25 MG TABLET PO SCH (09:00)
[2021-09-08] MEDS: FENOFIBRATE NANOCRYSTALLIZED 145 MG TABLET PO SCH (09:16)
[2021-09-08] MEDS: METOPROLOL TARTRATE 25 MG TAB PO SCH ×2 (09:16→20:12)
[2021-09-08] MEDS ORDERED: GLUCAGON FOR INJ 1 MG VIAL IM PRN (11:00)
[2021-09-08] MEDS ORDERED: CARBOHYDRATES FOR HYPOGLYCEMIA PO PRN (11:00)
[2021-09-08] MEDS ORDERED: GLUCOSE 10 TABS/TUBE PO PRN (11:00)
[2021-09-08] MEDS ORDERED: DEXTROSE 50% 50 ML SYRINGE IV PRN (11:00)
[2021-09-08] MEDS ORDERED: GLUCOSE 40% GEL 15 GM TUBE PO PRN (11:00)
[2021-09-08 11:14] LABS: Partial Thromboplastin Ratio 1.5; Partial Thromboplastin Time 39.9 Seconds (21.0-31.0)
[2021-09-08] MEDS: INSULIN ASPART PER UNIT SC SCH ×3 (11:52→20:13)
--- NOTE | 2021-09-08 12:27 | Cardiology Progress Note ---
Date of Service September 08, 2021 Assessment & Plan (1) NSTEMI (non-ST elevated myocardial infarction): (2) Acute systolic CHF (congestive heart failure): (3) Coronary artery disease: (4) S/P CABG x 3: (5) Aortic stenosis: (6) Mitral regurgitation: (7) Aortic regurgitation: (8) Ischemic cardiomyopathy: Plan: ASSESSMENT/PLAN: 1. NSTEMI: No further angina. She may have completely infarcted the at risk territory at this point as her troponin is significantly elevated. She has declined cardiac catheterization here as she prefers only to have it done at a facility with CT surgery backup. If PCI is even an option, it would likely be high risk given her anatomy that the ALLISON fills the LAD and then through collaterals the circumflex per report and the circumflex territory is the likely culprit given wall motion abnormalities on echo. Continue aspirin and heparin drip. Try to wean off nitroglycerin drip. Intolerant to statin therapy. Continue beta-glenna. Would typically recommend ROHIT-inhibitor but given significant aortic stenosis, would hold off for now. 2. CAD s/p CABG x 3: Cardiac catheterization performed at [facility] [place]21 demonstrated occluded LM CA and ostial RCA. Her circulation is basically ALLISON to LAD filling circumflex via collaterals from the LAD. Continue medical therapy as outlined above. Not on statin therapy due to statin intolerance. Have discussed Zetia and PCSK9 inhibitor as an outpatient but she declined. Can revisit this for outpatient therapy. 3. Aortic stenosis: She is being scheduled for aortic valve replacement at [facility], prior to this TN. she may be transferred [facility] during this hospital stay if bed becomes available. Otherwise, we will medically manage her TN now as per discussion today and can follow up with [facility] as an outpatient to continue forward with aortic valve replacement. This would be an option if she does well from a symptomatic standpoint while hospitalized. If she develops ongoing symptoms, transferred to CT surgery capable facility should be expedited, understanding it may have to be another facility other than [facility] due to bed availability. 4. Aortic regurgitation: Plan as above. 5. Mitral regurgitation: Discussed finding on echo. 6. Acute systolic CHF/heart failure with mid range EF: She improved with diuretic and appears euvolemic on exam. Her oxygen supplementation is being weaned. Her heart failure likely precipitated by acute TN in the setting of significant aortic stenosis. Would keep fluid balance negative. If signs or symptoms of worsening CHF or positive fluid balance, would recommend re-dosing Lasix 20 mg IV x1 as needed. Low-sodium diet. Daily weights. Strict I&Os. 7. Ischemic cardiomyopathy: EF now mildly reduced following TN. Would recommend metoprolol succinate at discharge in place of tartrate. Would not pursue Entresto or ROHIT-inhibitor given her significant aortic stenosis at this time and somewhat low blood pressures. Does not meet criteria for ICD for primary prevention. 8. Disposition: Cardiology will continue to follow. Plan of care discussed with Dr. Melo of the critical care team. Offered to call family for her on her behalf but she declined and plans on updating her family on her own. 42 minutes of critical care time spent, including counseling patient, coordinating care, discussing with Interventional Cardiology, Critical Care Team, and managing cardiac issues. Admission and Anticipated Discharge Date Admission Date: September 07, 2021 Subjective Patient was seen this morning at 8:30 a.m.. She has no further chest discomfort. She denies shortness of breath or orthopnea. She was able to lay flat although she is on supplemental oxygen. She admits that she did diurese si gnificantly with Lasix 40 mg IV yesterday. She is awaiting transfer to [facility] however it does not sound as though a bed is going to be readily available there based on discussion with nursing staff this morning. She prefers to not go to alternative hospital. She denies syncope, palpitations, edema, or bleeding. She does have leg cramps after receiving Lasix. She admits that she chronically gets leg cramps but notably worse after diuretic. She was alone in her hospital room. Review of systems: As above. Physical Exam Physical Exam: Gen.: No acute distress. Alert and oriented. HEENT: Anicteric sclera. Neck: No appreciable JVD. Cardiac: PMI was nondisplaced. No ventricular heave. Regular. Normal S1-S2. 2/6 late-peaking systolic ejection murmur best heard at the right upper sternal border. No rubs or gallops. Pulmonary: Clear to auscultation bilaterally without wheezes, rales, or rhonchi. Abdomen: Soft, nontender, nondistended, with normoactive bowel sounds. No bruits noted. Extremities: 2+ radial pulses bilaterally. 2+ posterior tibialis pulses bilaterally. Trace bilateral lower extremity edema. No cyanosis. Psychiatric: Affect appears appropriate. Results & Data ([facility]) Vital Signs (Past 12 Hours) Vital Signs Temp Pulse Resp BP Pulse Ox 09/08/21 12:07 36.5 C 09/08/21 11:45 99/63 L 99 09/08/21 11:30 84 18 117/66 98 09/08/21 11:15 78 16 113/58 L 96 09/08/21 11:00 78 16 109/68 95 09/08/21 10:45 79 18 114/65 95 09/08/21 10:30 80 18 124/63 96 09/08/21 10:15 87 19 117/75 96 09/08/21 10:00 79 15 118/63 92 09/08/21 09:45 85 22 111/63 92 09/08/21 09:31 89 16 103/49 L 99 09/08/21 09:30 86 17 97 09/08/21 09:15 80 28 H 120/68 97 09/08/21 09:00 85 20 109/74 100 09/08/21 08:45 83 25 H 103/59 L 99 09/08/21 08:30 83 20 99 09/08/21 08:01 83 18 117/65 97 09/08/21 08:00 82 17 99 09/08/21 07:45 76 19 117/61 97 09/08/21 07:31 83 14 125/71 95 09/08/21 07:30 74 17 98 09/08/21 07:22 36.8 C 09/08/21 07:15 76 20 123/64 97 09/08/21 07:00 74 21 107/73 96 09/08/21 06:45 73 18 100/58 L 96 09/08/21 06:30 71 17 109/69 96 09/08/21 06:15 70 15 101/61 96 09/08/21 06:00 70 17 92/54 L 96 09/08/21 05:46 77 20 86/58 L 96 09/08/21 05:38 66 19 83/55 L 97 09/08/21 05:30 69 18 98/62 L 98 09/08/21 05:16 92 H 23 102/75 97 09/08/21 05:00 79 17 134/77 97 09/08/21 04:45 79 18 126/70 97 09/08/21 04:30 76 21 116/68 97 09/08/21 04:15 76 18 97/67 L 97 09/08/21 04:00 76 15 121/74 97 09/08/21 03:45 76 28 H 116/71 97 09/08/21 03:30 76 16 111/76 97 09/08/21 03:02 82 24 130/85 100 09/08/21 03:00 88 14 96 09/08/21 02:30 78 23 121/68 96 09/08/21 02:15 75 25 H 118/65 95 09/08/21 02:01 74 18 116/69 97 09/08/21 02:00 85 18 94 09/08/21 01:45 77 30 H 124/60 95 09/08/21 01:30 71 26 H 111/66 96 09/08/21 01:15 80 17 112/65 95 09/08/21 01:01 77 24 101/51 L 96 09/08/21 01:00 64 15 96 09/08/21 00:45 92 H 16 138/77 98 09/08/21 00:30 74 16 113/66 97 Laboratory Results Laboratory Results - last 24 hr 09/07/21 09/07/21 09/07/21 13:32 13:34 13:34 WBC 6.48 RBC 4.40 Hgb 12.4 POC Hgb 13.9 Hct 40.3 POC Hct 41 MCV 91.6 MCH 28.2 MCHC 30.8 L RDW Std Deviation 59.1 H RDW Coeff of Elza 17.7 H Plt Count 281 MPV 8.8 Immature Gran % (Auto) 0.2 Neut % (Auto) 74.7 Lymph % (Auto) 17.6 [place] % (Auto) 6.2 Eos % (Auto) 1.1 Baso % (Auto) 0.2 Neut # (Auto) 4.85 Lymph # (Auto) 1.14 L [place] # (Auto) 0.40 Eos # (Auto) 0.07 Baso # (Auto) 0.01 Immature Gran # (Auto) 0.01 PT INR APTT PTT Ratio POC Sodium 139 Sodium 135 L POC Potassium 4.4 Potassium 4.2 POC Chloride 105 Chloride 103 Carbon Dioxide 24 POC Total CO2 23 L Anion Gap 8 POC Anion Gap 16.0 POC BUN 22 H BUN 21 Creatinine 1.42 H POC Creatinine 1.4 H Est Cr Clr Drug Dosing 37.9 Est GFR ( Amer) 43.3 Est GFR (Non-Af Amer) 37.3 BUN/Creatinine Ratio 14.8 Glucose 167 H POC Glucose POC Glucose (other) 173 H Calcium 9.5 POC Ioniz Calcium West 1.22 Phosphorus Magnesium Total Bilirubin 0.3 AST 23 ALT 15 Alkaline Phosphatase 47 Troponin I 0.36 H* Total Protein 7.4 Albumin 4.3 Globulin 3.1 Albumin/Globulin Ratio 1.4 Lipase 95 H Nasal Screen MRSA (PCR) SARS-CoV-2, RNA, NAAT 09/07/21 09/07/21 09/07/21 13:34 13:43 17:23 WBC RBC Hgb POC Hgb Hct POC Hct MCV MCH MCHC RDW Std Deviation RDW Coeff of Elza Plt Count MPV Immature Gran % (Auto) Neut % (Auto) Lymph % (Auto) [place] % (Auto) Eos % (Auto) Baso % (Auto) Neut # (Auto) Lymph # (Auto) [place] # (Auto) Eos # (Auto) Baso # (Auto) Immature Gran # (Auto) PT 11.1 11.3 INR 1.0 1.1 APTT 24.2 24.1 PTT Ratio 0.9 0.9 POC Sodium Sodium POC Potassium Potassium POC Chloride Chloride Carbon Dioxide POC Total CO2 Anion Gap POC Anion Gap POC BUN BUN Creatinine POC Creatinine Est Cr Clr Drug Dosing Est GFR ( Amer) Est GFR (Non-Af Amer) BUN/Creatinine Ratio Glucose POC Glucose POC Glucose (other) Calcium POC Ioniz Calcium West Phosphorus Magnesium Total Bilirubin AST ALT Alkaline Phosphatase Troponin I Total Protein Albumin Globulin Albumin/Globulin Ratio Lipase Nasal Screen MRSA (PCR) SARS-CoV-2, RNA, NAAT NEGATIVE 09/07/21 09/07/21 09/07/21 20:46 21:05 Unknown WBC RBC Hgb POC Hgb Hct POC Hct MCV MCH MCHC RDW Std Deviation RDW Coeff of Elza Plt Count MPV Immature Gran % (Auto) Neut % (Auto) Lymph % (Auto) [place] % (Auto) Eos % (Auto) Baso % (Auto) Neut # (Auto) Lymph # (Auto) [place] # (Auto) Eos # (Auto) Baso # (Auto) Immature Gran # (Auto) PT INR APTT PTT Ratio POC Sodium Sodium POC Potassium Potassium POC Chloride Chloride Carbon Dioxide POC Total CO2 Anion Gap POC Anion Gap POC BUN BUN Creatinine POC Creatinine Est Cr Clr Drug Dosing Est GFR ( Amer) Est GFR (Non-Af Amer) BUN/Creatinine Ratio Glucose POC Glucose 146 H POC Glucose (other) Calcium POC Ioniz Calcium [place] Phosphorus Magnesium Total Bilirubin AST ALT Alkaline Phosphatase Troponin I > 73.00 H* Total Protein Albumin Globulin Albumin/Globulin Ratio Lipase Nasal Screen MRSA (PCR) Negative SARS-CoV-2, RNA, NAAT 09/08/21 09/08/21 09/08/21 01:01 02:41 02:41 WBC 5.53 RBC 3.90 L Hgb 11.0 L POC Hgb Hct 34.8 L POC Hct MCV 89.2 MCH 28.2 MCHC 31.6 L RDW Std Deviation 58.7 H RDW Coeff of Elza 17.9 H Plt Count 266 MPV 9.2 Immature Gran % (Auto) 0.2 Neut % (Auto) 76.6 Lymph % (Auto) 13.7 [place] % (Auto) 8.9 Eos % (Auto) 0.4 Baso % (Auto) 0.2 Neut # (Auto) 4.24 Lymph # (Auto) 0.76 L [place] # (Auto) 0.49 Eos # (Auto) 0.02 Baso # (Auto) 0.01 Immature Gran # (Auto) 0.01 PT INR APTT 27.3 PTT Ratio 1.0 POC Sodium Sodium 134 L POC Potassium Potassium 4.4 POC Chloride Chloride 100 Carbon Dioxide 25 POC Total CO2 Anion Gap 9 POC Anion Gap POC BUN BUN 20 Creatinine 1.26 H POC Creatinine Est Cr Clr Drug Dosing 42.3 Est GFR ( Amer) 50.0 Est GFR (Non-Af Amer) 43.1 BUN/Creatinine Ratio 15.9 Glucose 152 H POC Glucose POC Glucose (other) Calcium 9.0 POC Ioniz Calcium West Phosphorus 4.4 Magnesium 1.6 L Total Bilirubin AST ALT Alkaline Phosphatase Troponin I > 73.00 H* Total Protein Albumin Globulin Albumin/Globulin Ratio Lipase Nasal Screen MRSA (PCR) SARS-CoV-2, RNA, NAAT 09/08/21 09/08/21 09/08/21 02:41 05:44 10:52 WBC RBC Hgb POC Hgb Hct POC Hct MCV MCH MCHC RDW Std Deviation RDW Coeff of Elza Plt Count MPV Immature Gran % (Auto) Neut % (Auto) Lymph % (Auto) [place] % (Auto) Eos % (Auto) Baso % (Auto) Neut # (Auto) Lymph # (Auto) [place] # (Auto) Eos # (Auto) Baso # (Auto) Immature Gran # (Auto) PT INR APTT 39.9 H PTT Ratio 1.5 POC Sodium Sodium 134 L POC Potassium Potassium 4.2 POC Chloride Chloride 99 Carbon Dioxide 26 POC Total CO2 Anion Gap 9 POC Anion Gap POC BUN BUN 19 Creatinine 1.24 H POC Creatinine Est Cr Clr Drug Dosing 43.0 Est GFR ( Amer) 51.0 Est GFR (Non-Af Amer) 44.0 BUN/Creatinine Ratio 15.3 Glucose 151 H POC Glucose 165 H POC Glucose (other) Calcium 9.1 POC Ioniz Calcium West Phosphorus Magnesium Total Bilirubin AST ALT Alkaline Phosphatase Troponin I Total Protein Albumin Globulin Albumin/Globulin Ratio Lipase Nasal Screen MRSA (PCR) SARS-CoV-2, RNA, NAAT 09/08/21 11:33 WBC RBC Hgb POC Hgb Hct POC Hct MCV MCH MCHC RDW Std Deviation RDW Coeff of Elza Plt Count MPV Immature Gran % (Auto) Neut % (Auto) Lymph % (Auto) [place] % (Auto) Eos % (Auto) Baso % (Auto) Neut # (Auto) Lymph # (Auto) [place] # (Auto) Eos # (Auto) Baso # (Auto) Immature Gran # (Auto) PT INR APTT PTT Ratio POC Sodium Sodium POC Potassium Potassium POC Chloride Chloride Carbon Dioxide POC Total CO2 Anion Gap POC Anion Gap POC BUN BUN Creatinine POC Creatinine Est Cr Clr Drug Dosing Est GFR ( Amer) Est GFR (Non-Af Amer) BUN/Creatinine Ratio Glucose POC Glucose 183 H POC Glucose (other) Calcium POC Ioniz Calcium West Phosphorus Magnesium Total Bilirubin AST ALT Alkaline Phosphatase Troponin I Total Protein Albumin Globulin Albumin/Globulin Ratio Lipase Nasal Screen MRSA (PCR) SARS-CoV-2, RNA, NAAT Diagnostic Findings Telemetry personally reviewed: Sinus rhythm. No arrhythmia. Echo report 09/07/2021: Normal LV size. Mildly reduced LV systolic function. EF 45%. Base to mid inferior akinesis. Inferolateral akinesis. Base to mid lateral severe hypokinesis. Normal RV size and systolic function. Moderate to severe aortic stenosis (PV 3; MG 18; TRENT 0.9; DI 0.35). Moderate AI. Ecce ntric, moderate MR. Medications Administered Current Inpatient Medications Aspirin (Aspirin 81 Mg Ectab) 81 mg PO HS MERVIN Stop: 10/07/21 20:59 Last Admin: 09/07/21 20:54 Dose: 81 mg Documented by: Dextrose (Dextrose 50% 50 Ml Syringe) 25 - 50 ml IV UD PRN; Protocol PRN Reason: Hypoglycemia Protocol Stop: 10/08/21 10:59 Fenofibrate (Fenofibrate Nanocrystallized 145 Mg Tablet) 145 mg PO QAM MERVIN Stop: 10/08/21 08:59 Last Admin: 09/08/21 09:16 Dose: 145 mg Documented by: Fluticasone Propionate (Fluticasone Propionate Na Spr 16 Gm Btl) 2 sprays LILA DAILY PRN PRN Reason: Congestion Stop: 10/07/21 20:18 Glucagon (Glucagon For Inj 1 Mg Vial) 1 mg IM UD PRN; Protocol PRN Reason: Hypoglycemia Protocol Stop: 10/08/21 10:59 Glucose (Glucose 40% Gel 15 Gm Tube) 15 - 30 gm PO UD PRN; Protocol PRN Reason: Hypoglycemia Protocol Stop: 10/08/21 10:59 Glucose (Glucose 10 Tabs/Tube) 4 - 8 tabs PO UD PRN; Protocol PRN Reason: Hypoglycemia Protocol Stop: 10/08/21 10:59 Nitroglycerin/Dextrose (Nitroglycerin/D5w 100 Mcg/Ml) 250 mls @ 6 mls/hr IV .Q24H MERVIN; Protocol Stop: 10/07/21 15:29 Last Titration: 09/08/21 07:08 Dose: 10 mcg/min, 6 mls/hr Documented by: Heparin Sodium/Dextrose (Heparin Sodium/Dextrose) 25,000 units in 500 mls @ 20 mls/hr IV .Q24H MERVIN; Protocol Stop: 10/07/21 18:44 Last Titration: 09/08/21 11:52 Dose: 52,500 units/hr, 1,050 mls/hr Documented by: Insulin Aspart (Insulin Aspart Per Unit) 0 units SC ACHS MERVIN Stop: 10/08/21 11:29 Last Admin: 09/08/21 11:52 Dose: 5 units Documented by: Levalbuterol HCl (Levalbuterol Hcl 0.63 Mg/3 Ml Neb) 0.63 mg INH Q4H PRN PRN Reason: Dyspnea Stop: 10/07/21 20:18 Metoprolol Tartrate (Metoprolol Tartrate 25 Mg Tab) 25 mg PO BID [facility] Stop: 10/08/21 08:59 Last Admin: 09/08/21 09:16 Dose: 25 mg Documented by: Miscellaneous (Icu Protocol For Hyperglycemia) 1 ea N/A PRN PRN; Protocol PRN Reason: Hyperglycemia Protocol Stop: 09/09/21 20:18 Miscellaneous (Carbohydrates For Hypoglycemia ) 15 - 30 gm PO UD PRN PRN Reason: Hypoglycemia Treatment Stop: 10/08/21 10:59 Pantoprazole Sodium (Pantoprazole 40 Mg Tab) 40 mg PO DAILYBB [facility] Stop: 10/08/21 06:29 Last Admin: 09/08/21 05:34 Dose: 40 mg Documented by: Senna/Docusate Sodium (Docusate Sodium/Senna 50/8.6mg Tab) 1 tab PO QAM [facility] Stop: 10/08/21 11:44 PG Care Time/CCT Total # of Minutes Spent Total Time Spent with Patient: Total time spent is greater than 50% in coordination of care (as documented) at patient's floor/unit and/or counseling patient: Critical Care Time: Yes Total Critical Care Time: 42 Coding Level of Care Code None Diagnoses NSTEMI (non-ST elevated myocardial infarction) I21.4 Acute systolic CHF (congestive heart failure) I50.21 Aortic stenosis I35.0 Cardiac valve disease etiology: etiology unspecified Mitral regurgitation I34.0 Aortic regurgitation I35.1 Ischemic cardiomyopathy I25.5 Coronary artery disease I25.10 S/P CABG x 3 Z95.1 Additional Codes Critical Care Time - Critical Care Time: Yes ([id number]) Time Spent (min) 42 Comment [id number] (1) Aortic stenosis Cardiac valve disease etiology: etiology unspecified Qualified Code(s): I35.0 - Nonrheumatic aortic (valve) stenosis
[2021-09-08] MEDS: DOCUSATE SODIUM/SENNA 50/8.6MG TAB PO SCH (14:29)
--- NOTE | 2021-09-08 14:33 | Hospitalist Progress Note ---
Date of Service September 08, 2021 Assessment & Plan (1) Aortic stenosis: Plan: Severe Aortic Stenosis awaiting evaluation at [facility] [place]AV[place]. Presented with sustained chest pressure, hypoxia, and dyspnea- evidence of pulmonary congestion on admission. Now resolved. Plann Transfer to [facility] upon bed availability (2) Angina at rest: Plan: Angina currently suppressed with intravenous nitroglycerin drip. Cardiology consultation appreciated. Continue current medical management. (3) NSTEMI (non-ST elevated myocardial infarction): Plan: Currently stable. Continue heparin drip and nitroglycerin drip. Cardiology consultation appreciated. Awaiting transfer to tertiary [facility] for intervention. (4) Dyspnea on exertion: Plan: Secondary to aortic stenosis and pulmonary edema on admission. Improved. (5) Coronary artery disease: Plan: Recent Cath 08/26/21- CAD to bypassed vessels. Appreciate interventional cardiology assistance. Currently on heparin drip and nitroglycerin drip. Co ntinue other current medications (6) Chronic kidney disease, stage III (moderate): Plan: Stable. Monitor intake and output. Serial lab studies. Avoid nephrotoxic agents. (7) Type 2 diabetes mellitus: Plan: ADA diet. Sliding scale insulin coverage as needed. (8) Hyperlipidemia: Plan: Continue statin Plan: Eventual transfer to [place] pending bed availability. Admission and Anticipated Discharge Date Admission Date: September 07, 2021 Subjective Alert and oriented. No chest pain. Cardiology entry noted. She remains on heparin drip and nitroglycerin drip. Awaiting transfer to tertiary care facility. Review of Systems Review of Systems: Constitutional-no fever or chills ENT-no blurred vision, no double vision, no epistaxis, no sore throat Respiratory-no cough, no wheezing, no shortness of breath Cardiac-no palpitations, no chest pain, no syncope GI-no nausea, vomiting, diarrhea, melena, hematochezia -no urinary retention, no urinary incontinence, no dysuria, no hematuria Musculoskeletal-no joint pain, no muscle tenderness Skin-no bruising, no rashes, no pruritus Neuro-no isolated weakness, no paresthesia, no weakness Psych-no depression, no anxiety Physical Exam Physical Exam: General-alert and oriented x3, no fevers, no chills HEENT-head atraumatic and normocephalic, TMs intact bilaterally, pupils equal and reactive to light, extraocular muscles intact Neck-no lymphadenopathy or thyromegaly, trachea midline Chest-clear to auscultation percussion. No rales wheezing or rhonchi Cardiac-regular rate and rhythm, normal S1 and S2, no murmurs Abdomen-normal bowel sounds, nontender, no hepatosplenomegaly Extremities-no cyanosis, clubbing, or edema Neuro-cranial nerves II through XII intact, motor and sensory function within normal limits, strength symmetrical, no focal deficits Psych-normal affect, normal mood Results & Data Results & Data ([facility]) Vital Signs (Past 12 Hours) Vital Signs Temp Pulse Resp BP Pulse Ox 09/08/21 12:07 36.5 C 09/08/21 11:45 99/63 L 99 09/08/21 11:30 84 18 117/66 98 09/08/21 11:15 78 16 113/58 L 96 09/08/21 11:00 78 16 109/68 95 09/08/21 10:45 79 18 114/65 95 09/08/21 10:30 80 18 124/63 96 09/08/21 10:15 87 19 117/75 96 09/08/21 10:00 79 15 118/63 92 09/08/21 09:45 85 22 111/63 92 09/08/21 09:31 89 16 103/49 L 99 09/08/21 09:30 86 17 97 09/08/21 09:15 80 28 H 120/68 97 09/08/21 09:00 85 20 109/74 100 09/08/21 08:45 83 25 H 103/59 L 99 09/08/21 08:30 83 20 99 09/08/21 08:01 83 18 117/65 97 09/08/21 08:00 82 17 99 09/08/21 07:45 76 19 117/61 97 09/08/21 07:31 83 14 125/71 95 09/08/21 07:30 74 17 98 09/08/21 07:22 36.8 C 09/08/21 07:15 76 20 123/64 97 09/08/21 07:00 74 21 107/73 96 09/08/21 06:45 73 18 100/58 L 96 09/08/21 06:30 71 17 109/69 96 09/08/21 06:15 70 15 101/61 96 09/08/21 06:00 70 17 92/54 L 96 09/08/21 05:46 77 20 86/58 L 96 09/08/21 05:38 66 19 83/55 L 97 09/08/21 05:30 69 18 98/62 L 98 09/08/21 05:16 92 H 23 102/75 97 09/08/21 05:00 79 17 134/77 97 09/08/21 04:45 79 18 126/70 97 09/08/21 04:30 76 21 116/68 97 09/08/21 04:15 76 18 97/67 L 97 09/08/21 04:00 76 15 121/74 97 09/08/21 03:45 76 28 H 116/71 97 09/08/21 03:30 76 16 111/76 97 09/08/21 03:02 82 24 130/85 100 09/08/21 03:00 88 14 96 09/08/21 02:30 78 23 121/68 96 Laboratory Results 09/08/21 02:41 09/08/21 02:41 PG Care Time/CCT Total # of Minutes Spent Total Time Spent with Patient: Total time spent is greater than 50% in coordination of care (as documented) at patient's floor/unit and/or counseling patient: Coding Level of Care Code 92239 Subseq Hosp Care Lvl 3 Diagnoses Aortic stenosis I35.0 Angina at rest I20.8 NSTEMI (non-ST elevated myocardial infarction) I21.4 Dyspnea on exertion R06.00 Coronary artery disease I25.10 Chronic kidney disease, stage III (moderate) N18.3 Type 2 diabetes mellitus E11.9 Diabetes mellitus [facility] insulin use: without [facility] use Diabetes mellitus complication status: without complication Hyperlipidemia E78.5 (1) Type 2 diabetes mellitus Diabetes mellitus [facility] insulin use: without [facility] use Diabetes mellitus complication status: without complication Qualified Code(s): E11.9 - Type 2 diabetes mellitus without complications
--- NOTE | 2021-09-08 16:38 | Billing Data ---
Date of Service September 08, 2021 Coding Level of Care Code Critical Care 1st 30-74 mins Time Spent (min) 35
--- NOTE | 2021-09-08 17:05 | Electrocardiogram Report ---
Test Reason : Blood Pressure : / mmHG Vent. Rate : 080 BPM Atrial Rate : 080 BPM P-R Int : 178 ms QRS Dur : 106 ms QT Int : 376 ms P-R-T Axes : 041 -19 141 degrees QTc Int : 433 ms Normal sinus rhythm Abnormal ECG When compared with ECG of 07-SEP-2021 15:13, Non-specific change in ST segment in Inferior leads ST less depressed in Anterior leads Nonspecific T wave abnormality, worse in Inferior leads T wave inversion more evident in Lateral leads Confirmed by Chapin Gamez ([id number]) on 09/08/2021 5:05:50 PM Referred By: REFERRED SELF Confirmed By:Cody Gamez
[2021-09-08 18:25] LABS: Partial Thromboplastin Ratio 1.2; Partial Thromboplastin Time 32.7 Seconds (21.0-31.0)
[2021-09-08] MEDS ORDERED: HEPARIN SOD (PORCINE) 1000 UNIT/ML IV ONE (19:00)
[2021-09-08] MEDS: ASPIRIN 81 MG ECTAB PO SCH (20:12)
[2021-09-08] MEDS: HEPARIN SODIUM/DEXTROSE 25,000 UNITS/500 ML BAG IV SCH (22:30)
[2021-09-08] MEDS ORDERED: ACETAMINOPHEN 325 MG TAB PO PRN (22:50)
[2021-09-08] MEDS: NITROGLYCERIN/D5W 100MCG/ML 250 ML IV SCH (23:32)
[2021-09-09 02:24] LABS: Partial Thromboplastin Ratio 1.9
[2021-09-09] MEDS: PANTOprazole 40 MG TAB PO SCH (05:48)
[2021-09-09 06:18] LABS: Basophils # (auto) 0.01 K/uL (0-0.2); Basophils % (auto) 0.2 %; Eosinophils # (auto) 0.07 K/uL (0-0.5); Eosinophils % (auto) 1.4 %; Hematocrit (blood only) 37.2 % (37-47); Hemoglobin 11.5 g/dL (12.0-16.0); Immature Granulocytes # (auto) 0.01 K/uL (0.00-0.02); Immature Granulocytes % (auto) 0.2 %; Lymphocytes # (auto) 1.12 K/uL (1.2-3.4); Lymphocytes % (auto) 21.6 %; Mean Corpuscular Hemoglobin 28.3 pg (25-34); Mean Corpuscular Hgb Conc 30.9 g/dL (32-36); Mean Corpuscular Volume 91.4 fL (80-100); Mean Platelet Volume 8.9 fL (7.4-10.4); Monocytes # (auto) 0.47 K/uL (0.11-0.59); Monocytes % (auto) 9.1 %; Neutrophils % (auto) 67.5 %; Platelet Count 245 K/uL (130-400); RDW Coefficient of Variation 18.1 % (11.5-14.5); RDW Standard Deviation 60.5 fL (36.4-46.3); Red Blood Count 4.07 M/uL (4.2-5.4); White Blood Count 5.18 K/uL (4.8-10.8)
[2021-09-09 06:36] LABS: BUN Creatinine Ratio 11.6 (10-20); Calcium 9.4 mg/dl (8.5-10.1); Creatinine Clr Calc Pharmacy 38.6 ml/min; Est GFR (African American) 44.8 ml/min; Est GFR (Non-African American) 38.6 ml/min; Magnesium 2.1 mg/dl (1.7-2.4); Phosphorus 3.3 mg/dl (2.5-4.9); Potassium 3.9 mmol/L (3.5-5.1)
[2021-09-09] MEDS ORDERED: POTASSIUM CHLORIDE CRTAB 20 MEQ TABCR PO STA (06:39)
[2021-09-09] MEDS: METOPROLOL TARTRATE 25 MG TAB PO SCH (08:02)
[2021-09-09] MEDS: FENOFIBRATE NANOCRYSTALLIZED 145 MG TABLET PO SCH (08:02)
[2021-09-09] MEDS: DOCUSATE SODIUM/SENNA 50/8.6MG TAB PO SCH (08:02)
[2021-09-09] MEDS: INSULIN ASPART PER UNIT SC SCH ×4 (08:11→21:02)
--- NOTE | 2021-09-09 08:35 | Critical Care Progress Note ---
Date of Service September 09, 2021 Assessment & Plan (1) Aortic stenosis: (2) Elevated troponin: (3) NSTEMI (non-ST elevated myocardial infarction): (4) Dyspnea on exertion: (5) Precordial chest pain: Plan: ICU Assessment and Plans Reason Critically Ill: 71-year-old female here with a PMHx significant for aortic stenosis CABG CAD CKDIII DM2 HLD who presented with chest pain SOB and who was admitted for NSTEMI. Neuro - CAM ICU: NEGATIVE Sedation: none Analgesia: none Cardiac - NSTEMI with angina * EKG 09/07/2021: ST depression appreciated in the lateral leads, normal sinus rhythm, normal axis * Recieved lasix in ED, Consider diuretics if patient hypoxic * Started on nitro drip, heparin drip --> nitro drip dc'd 12hr without complications * Trend troponins, >73 * Keep SBP around 150-140 Cardiology consulted * 2D echo: EF45% new LV dysfunction, mod-sev , mod AR, eccentric mod MR * consider plavix if wait time for transfer continues * continue beta glenna History of aortic stenosis * Follows up with [facility] * Awaiting work-up for aortic valve replacement Hypertension/HLD * Resume home metoprolol and fenofibrate History of coronary artery disease * S/p CABG 2002 * on daily ASA 81mg Respiratory - CTA chest 09/07/2021: Interlobular thickening appreciated bilaterally upper and lower lobes * Increased vascular congestion in the lower lobes with groundglass opacities * No mediastinal lymphadenopathy Probable CONCHITA * Outpatient polysomnography * BiPAP nightly and as needed shortness of breath Ex-smoker * [id number] smoking history, quit 1987 * Outpatient PFTs and based on PFTs decide whether patient needs to be on any inhalers GI - Heat healthy DM2 diet Protonix 40mg PO daily RENAL/LYTES - No significant electrolyte derangement. Replace lytes as needed. CKD Monitor BUNs/creatinine Avoid nephrotoxic medication - No concerns at this time. I/O: -168, 600 urine ENDO - Diabetes type 2, sliding scale insulin ordered HEME - Stable H&H. Will monitor for any drops in the setting of Heparin gtt ID - No concerns for infection at this point. INTEGUMENTARY - skin dry, intact LINES/IV ACCESS - PIVs intact. DVT PROPHYLAXIS - Heparin drip Thank you for allowing us to be part of this patient's care. Please refer to Dr. Caceres documentation for any further recommendations. Patient may be downgraded from ICU. Admission and Anticipated Discharge Date Admission Date: September 07, 2021 Supervising Physician Co-Signing Physician Notes Dr. Yun was the resident-physician during care of patient. I separately evaluated patient for hayward portions of the history and the exam. I was present during the critical portion of medical decision making, and I discussed the case with the resident. I generally agree with the findings and plan except for any additions/exceptions noted. Patient seen and examined bedside. No acute distress, no dressings overnight Has been off nitro drip for more than 12 hours Says that she feels better Denies any chest pain, no shortness of breath Has been urinating well. No dizziness, no lightheadedness. Constitutional: No acute distress HEENT: EOMI, PERRLA Respiratory system: Decreased air entry bilaterally, no wheeze, rhonchi, mild crackles bilateral lower lobes CVS: S1-S2 positive, positive 3 out of 6 systolic murmur appreciated best at the aorta Abdomen: Soft, nontender, nondistended, positive bowel sounds x4, obese Extremities: +2 pulses bilaterally radialis/ dorsalis pedis, no cyanosis, no edema Neuro: Awake alert oriented x3 Psych: Normal mood and affect G/U: No De Oliveira --Prophylaxis VTE: Heparin drip GI: Pantoprazole Lines: Peripheral Diet: Cardiac Plan: In/out: -1200, urine output 2745 Patient's case was discussed with [facility] by Dr. Lai. and they are not planning to do any intervention on the aortic valve right now Given the mild tachycardia the patient had beta-blockers will be increased keeping the blood pressure in mind Case discussed with with Dr. Lai. Patient is hemodynamically stable to be downgraded to medical floor Please note the above document was generated using voice recognition software. It may contain grammatical, syntax or spelling errors.Any formal questions or concerns about the content, text or information contained within the body of this dictation should be directly addressed to the provider for clarification. Subjective Patient seen at bedside seated in chair, calm comfortable cooperative. Patient has no complaints at this time, no SOB chest pain, understands there is a long wait for transfer. Patient has been off nitro drip 12hr, asymptomatic. Cardiology has stopped by, if wait time for patient is long she may be started on plavix. Patient states she was never started on plavix after her CABG, though she was on eliquis in the past. No other events overnight. Review of Systems Review of Systems: Negative fever chills Negative headache dizziness Negative chest pain palpitations SOB Negative nausea vomitting diarrhea constipation Negative numbness tingling rash swelling Physical Exam Constitutional: WD/WN, vitals as above + obese, cooperative and comfortable Eyes: PERRL, conjunctivae normal, anicteric sclerae ENMT: external ear and nose normal, oropharynx normal Neck: trachea midline, no thyromegaly Respiratory: normal respiratory effort, lungs clear to auscultation Cardiovascular: Rate/Rhythm: regular rate and regular rhythm Heart Sounds: normal S1, normal S2 and + murmur (aortic) Extremities: normal capillary refill Gastrointestinal (Abdomen): normal bowel sounds, soft, nontender, no hepatosplenomegaly Skin: no rashes, warm and dry Psychiatric: A+Ox3, euthymic affect Results & Data Results & Data ([facility]) Vital Signs (Past 12 Hours) Vital Signs Temp Pulse Resp BP Pulse Ox 09/09/21 06:01 82 22 125/57 L 97 09/09/21 06:00 82 16 98 09/09/21 05:30 80 12 134/70 99 09/09/21 05:00 73 17 115/65 97 09/09/21 04:31 72 20 115/62 97 09/09/21 04:00 37.0 C 75 16 119/68 98 09/09/21 03:31 70 18 110/52 L 98 09/09/21 03:00 70 19 129/60 98 09/09/21 02:30 71 17 128/58 L 97 09/09/21 02:00 80 16 135/77 99 09/09/21 01:30 73 19 118/62 98 09/09/21 01:00 72 20 117/62 97 09/09/21 00:30 70 18 116/53 L 98 09/09/21 00:12 72 09/09/21 00:00 37.2 C 71 19 107/47 L 97 09/08/21 23:30 73 19 99/52 L 97 09/08/21 23:00 79 23 129/65 97 09/08/21 22:30 80 20 105/66 97 09/08/21 22:00 82 21 127/65 97 09/08/21 21:30 83 23 130/66 97 09/08/21 21:00 83 21 117/63 96 Resident Activity Tracking Resident Involvement: Resident Care Provided Care Provided: Adult Hospital Medicine (1) Aortic stenosis Cardiac valve disease etiology: etiology unspecified Qualified Code(s): I35.0 - Nonrheumatic aortic (valve) stenosis
--- NOTE | 2021-09-09 10:52 | Billing Data ---
Date of Service September 09, 2021 Coding Level of Care Code 43425 Subseq Hosp Care Lvl 3
[2021-09-09] MEDS: ISOSORBIDE MONO EXTENDED REL 30 MG TABCR PO SCH (11:25)
[2021-09-09] MEDS: CYANOCOBALAMIN (B-12) 100 MCG TABLET PO SCH (11:25)
--- NOTE | 2021-09-09 12:12 | Hospitalist Progress Note ---
Date of Service September 09, 2021 Assessment & Plan (1) Aortic stenosis: Plan: Severe Aortic Stenosis [place] [facility] Presented with sustained chest pressure, hypoxia, and dyspnea- evidence of pulmonary congestion on admission. Now resolved. Lasix has been discontinued. Plan Transfer [place] [facility] [place] availability (2) Angina at rest: Plan: Angina currently suppressed with intravenous nitroglycerin drip. Cardiology consultation appreciated. Continue current medical management. (3) NSTEMI (non-ST elevated myocardial infarction): Plan: Currently stable. Continue heparin drip for 48 hours duration. Nitroglycerin drip has been discontinued. Imdur has been started. Cardiology consultation appreciated. Awaiting transfer to tertiary care [facility] for intervention. (4) Dyspnea on exertion: Plan: Secondary to aortic stenosis and pulmonary edema on admission. Resolved (5) Coronary artery disease: Plan: Recent Cath 08/26/21- CAD to bypassed vessels. Appreciate interventional cardiology assistance. Treated with heparin drip and nitroglycerin drip. Continue other current medications (6) Chronic kidney disease, stage III (moderate): Plan: Stable. Monitor intake and output. Serial lab studies. Avoid nephrotoxic agents. (7) Type 2 diabetes mellitus: Plan: ADA diet. Sliding scale insulin coverage as needed. (8) Hyperlipidemia: Plan: Continue statin Plan: Eventual transfer to tertiary [facility] pending bed availability. Admission and Anticipated Discharge Date Admission Date: September 07, 2021 Subjective Alert and pleasant. Nitroglycerin drip switched to oral Imdur therapy. She is stable for transfer out of the ICU today, September 09. She remains on a heparin drip. Transfer to [facility] under the care of Dr. Hansen is still pending. Parenteral Lasix has been discontinued. Review of Systems Review of Systems: Constitutional-no fever or chills ENT-no blurred vision, no double vision, no epistaxis, no sore throat Respiratory-no cough, no wheezing, no shortness of breath Cardiac-no palpitations, no chest pain, no syncope GI-no nausea, vomiting, diarrhea, melena, hematochezia -no urinary retention, no urinary incontinence, no dysuria, no hematuria Musculoskeletal-no joint pain, no muscle tenderness Skin-no bruising, no rashes, no pruritus Neuro-no isolated weakness, no paresthesia, no weakness Psych-no depression, no anxiety Physical Exam Physical Exam: General-alert and oriented x3, no fevers, no chills HEENT-head atraumatic and normocephalic, TMs intact bilaterally, pupils equal and reactive to light, extraocular muscles intact Neck-no lymphadenopathy or thyromegaly, trachea midline Chest-clear to auscultation percussion. No rales wheezing or rhonchi Cardiac-regular rate and rhythm, normal S1 and S2, no murmurs Abdomen-normal bowel sounds, nontender, no hepatosplenomegaly Extremities-no cyanosis, clubbing, or edema Neuro-cranial nerves II through XII intact, motor and sensory function within normal limits, strength symmetrical , no focal deficits Psych-normal affect, normal mood Results & Data Results & Data ([facility]) Vital Signs (Past 12 Hours) Vital Signs Temp Pulse Resp BP Pulse Ox 09/09/21 11:30 36.5 C 78 18 121/75 96 09/09/21 11:25 78 16 123/61 95 09/09/21 11:00 72 21 92 09/09/21 10:00 94 H 20 86 L 09/09/21 09:00 96 H 19 96 09/09/21 08:08 36.9 C 96 H 19 95 09/09/21 07:30 81 20 120/67 96 09/09/21 07:01 84 16 94 09/09/21 06:01 82 22 125/57 L 97 09/09/21 06:00 82 16 98 09/09/21 05:30 80 12 134/70 99 09/09/21 05:00 73 17 115/65 97 09/09/21 04:31 72 20 115/62 97 09/09/21 04:00 37.0 C 75 16 119/68 98 09/09/21 03:31 70 18 110/52 L 98 09/09/21 03:00 70 19 129/60 98 09/09/21 02:30 71 17 128/58 L 97 09/09/21 02:00 80 16 135/77 99 09/09/21 01:30 73 19 118/62 98 09/09/21 01:00 72 20 117/62 97 09/09/21 00:30 70 18 116/53 L 98 09/09/21 00:12 72 Laboratory Results 09/09/21 05:48 09/09/21 05:48 PG Care Time/CCT Total # of Minutes Spent Total Time Spent with Patient: Total time spent is greater than 50% in coordination of care (as documented) at patient's floor/unit and/or counseling patient: Coding Level of Care Code 38014 Subseq Hosp Care Lvl 3 Diagnoses Aortic stenosis I35.0 Angina at rest I20.8 NSTEMI (non-ST elevated myocardial infarction) I21.4 Dyspnea on exertion R06.00 Coronary artery disease I25.10 Chronic kidney disease, stage III (moderate) N18.3 Type 2 diabetes mellitus E11.9 Diabetes mellitus moth exterminator insulin use: without moth exterminator use Diabetes mellitus complication status: without complication Hyperlipidemia E78.5 (1) Type 2 diabetes mellitus Diabetes mellitus detention insulin use: without moth exterminator use Diabetes mellitus complication status: without complication Qualified Code(s): E11.9 - Type 2 diabetes mellitus without complications
--- NOTE | 2021-09-09 12:22 | Cardiology Progress Note ---
Date of Service September 09, 2021 Assessment & Plan (1) NSTEMI (non-ST elevated myocardial infarction): (2) Acute systolic CHF (congestive heart failure): (3) Coronary artery disease: (4) S/P CABG x 3: (5) Aortic stenosis: (6) Mitral regurgitation: (7) Aortic regurgitation: (8) Ischemic cardiomyopathy: Plan: ASSESSMENT/PLAN: 1. NSTEMI: No further angina. She seems to have completed her infarct and is doing well without intravenous nitroglycerin. Given her anatomy, and the infarcted territory (circumflex based on echo), the likelihood that intervention would be an option would be low and if possible, high risk. Her coronary perfusion is basically a ALLISON that fills the LAD and then through collaterals the circumflex per report. She had declined cardiac catheterization here. Discussed with Dr. Paul ([facility] [place]) who agrees that she is not a good candidate for intervention as he recently performed her outpatient cardiac catheterization. Continue aspirin 81 mg daily. Continue heparin drip for a total of 48 hours from presentation. Start Plavix 75 mg daily. [facility] Dr. Paul will instruct her to hold Plavix before upcoming TAVR but is okay with the initiation currently. Intolerant to statin therapy. Continue beta-glenna. Would typically recommend ROHIT-inhibitor but given significant aortic stenosis, would not recommend at this time. 2. CAD s/p CABG x 3: Cardiac catheterization performed at [facility] on 08/26/2021 demonstrated occluded LM CA and ostial RCA. Her circulation is basically ALLISON to LAD filling circumflex via collaterals from the LAD. Continue medical therapy as outlined above. Not on statin therapy due to statin intolerance. Have discussed Zetia and PCSK9 inhibitor as an outpatient but she declined. Can revisit this for outpatient therapy. Increase metoprolol to 50 mg twice daily today, prior to initiation of succinate tomorrow. 3. Aortic stenosis: She is scheduled for CT scan at [facility] and then outpatient TAVR in September. Discussed with Dr. Paul of [facility] this morning via telephone and he is now aware of her AR and treatment plan. He was in agreement of medical therapy and plans on continuing the TAVR as previously planned, as long as she continues to do well post AR. 4. Aortic regurgitation: Plan as above. 5. Mitral regurgitation: Dr. Paul was informed of new echo findings, including mildly reduced EF and mitral regurgitation, in anticipation of upcoming TAVR. 6. Acute systolic CHF/heart failure with mid range EF: She improved with diuretic and appears euvolemic on exam. She is doing well on room air. Her heart failure likely precipitated by acute AR in the setting of significant aortic stenosis. Would keep fluid balance negative. Recommend close follow-up as an outpatient to determine if she needs standing dose of diuretic, but at this time, this does not appear to be the case. Low-sodium diet. Daily weights. Strict I&Os. 7. Ischemic cardiomyopathy: EF now mildly reduced following AR. Recommend metoprolol succinate 100 mg daily tomorrow, in place of metoprolol tartrate. Would not pursue Entresto or ROHIT-inhibitor given her significant aortic stenosis. Does not meet criteria for ICD for primary prevention. 8. Disposition: I will be away from the hospital for the next [address] Valles will be on-call bullet assembly press operator over the weekend. Please call with any questions or concerns. Her care was signed out to him today. If she continues to progress, and can ambulate in the hallways without angina, would be okay for discharge from a Cardiology perspective tomorrow. Recommend follow-up in 1 week in the outpatient cardiology office. She states that appointment has already been scheduled with me. Patient care has been communicated with Dr. Forbes of the primary hospitalist service and Dr. Melo of the critical care team. She is stable for transfer to PCU from a cardiology perspective. Admission and Anticipated Discharge Date Admission Date: September 07, 2021 Subjective She was seen this morning at approx 0800 AM. She has been weaned from nitroglycerin drip. She has not had any further chest discomfort. She has dy spnea with exertion but believes it is similar to how she has been feeling prior to her AR, which was leading up towards her valve replacement. She denies orthopnea, syncope, near-syncope, palpitations, edema, or bleeding. She was on room air this morning after returning from the commode and her oxygen saturation was 94-96%. Review of systems: As above. Physical Exam Physical Exam: Gen.: No acute distress. Alert and oriented. HEENT: Anicteric sclera. Neck: No appreciable JVD. Cardiac: No ventricular heave. Regular. Normal S1-S2. 2/6 late-peaking systolic ejection murmur best heard at the right upper sternal border. No rubs or gallops. Pulmonary: Clear to auscultation bilaterally without wheezes, rales, or rhonchi. Abdomen: Soft, nontender, nondistended, with normoactive bowel sounds. No bruits noted. Extremities: 2+ radial pulses bilaterally. 2+ posterior tibialis pulses bilaterally. No significant pitting edema. No cyanosis. Psychiatric: Affect appears appropriate. Results & Data ([facility]) Vital Signs (Past 12 Hours) Vital Signs Temp Pulse Resp BP Pulse Ox 09/09/21 11:30 36.5 C 78 18 121/75 96 09/09/21 11:25 78 16 123/61 95 09/09/21 11:00 72 21 92 09/09/21 10:00 94 H 20 86 L 09/09/21 09:00 96 H 19 96 09/09/21 08:08 36.9 C 96 H 19 95 09/09/21 07:30 81 20 120/67 96 09/09/21 07:01 84 16 94 09/09/21 06:01 82 22 125/57 L 97 09/09/21 06:00 82 16 98 09/09/21 05:30 80 12 134/70 99 09/09/21 05:00 73 17 115/65 97 09/09/21 04:31 72 20 115/62 97 09/09/21 04:00 37.0 C 75 16 119/68 98 09/09/21 03:31 70 18 110/52 L 98 09/09/21 03:00 70 19 129/60 98 09/09/21 02:30 71 17 128/58 L 97 09/09/21 02:00 80 16 135/77 99 09/09/21 01:30 73 19 118/62 98 09/09/21 01:00 72 20 117/62 97 09/09/21 00:30 70 18 116/53 L 98 Intake & Output 09/07/21 09/08/21 09/09/21 09/10/21 06:59 06:59 06:59 06:59 Intake Total 431.60 / 431.60 1507.017 / 1507.017 114.4 / 114.4 Output Total 600 / 600 2745 / 2745 Balance -168.40 / -168.40 -1237.983 / -1237.983 114.4 / 114.4 Weight 205 lb 0.478 oz 205 lb 0.478 oz Laboratory Results Laboratory Results - last 24 hr 09/08/21 09/08/21 09/08/21 16:34 18:09 19:58 WBC RBC Hgb Hct MCV MCH MCHC RDW Std Deviation RDW Coeff of Elza Plt Count MPV Immature Gran % (Auto) Neut % (Auto) Lymph % (Auto) [place] % (Auto) Eos % (Auto) Baso % (Auto) Neut # (Auto) Lymph # (Auto) [place] # (Auto) Eos # (Auto) Baso # (Auto) Immature Gran # (Auto) APTT 32.7 H PTT Ratio 1.2 Sodium Potassium Chloride Carbon Dioxide Anion Gap BUN Creatinine Est Cr Clr Drug Dosing Est GFR ( Amer) Est GFR (Non-Af Amer) BUN/Creatinine Ratio Glucose POC Glucose 166 H 187 H Calcium Phosphorus Magnesium 09/09/21 09/09/21 09/09/21 01:37 05:48 05:48 WBC 5.18 RBC 4.07 L Hgb 11.5 L Hct 37.2 MCV 91.4 MCH 28.3 MCHC 30.9 L RDW Std Deviation 60.5 H RDW Coeff of Elza 18.1 H Plt Count 245 MPV 8.9 Immature Gran % (Auto) 0.2 Neut % (Auto) 67.5 Lymph % (Auto) 21.6 Ventura % (Auto) 9.1 Eos % (Auto) 1.4 Baso % (Auto) 0.2 Neut # (Auto) 3.50 Lymph # (Auto) 1.12 L [place] # (Auto) 0.47 Eos # (Auto) 0.07 Baso # (Auto) 0.01 Immature Gran # (Auto) 0.01 APTT 51.0 H* PTT Ratio 1.9 Sodium 135 L Potassium 3.9 Chloride 100 Carbon Dioxide 28 Anion Gap 7 BUN 16 Creatinine 1.38 H Est Cr Clr Drug Dosing 38.6 Est GFR ( Amer) 44.8 Est GFR (Non-Af Amer) 38.6 BUN/Creatinine Ratio 11.6 Glucose 153 H POC Glucose Calcium 9.4 Phosphorus 3.3 D Magnesium 2.1 09/09/21 09/09/21 07:33 11:22 WBC RBC Hgb Hct MCV MCH MCHC RDW Std Deviation RDW Coeff of Elza Plt Count MPV Immature Gran % (Auto) Neut % (Auto) Lymph % (Auto) [place] % (Auto) Eos % (Auto) Baso % (Auto) Neut # (Auto) Lymph # (Auto) [place] # (Auto) Eos # (Auto) Baso # (Auto) Immature Gran # (Auto) APTT PTT Ratio Sodium Potassium Chloride Carbon Dioxide Anion Gap BUN Creatinine Est Cr Clr Drug Dosing Est GFR ( Amer) Est GFR (Non-Af Amer) BUN/Creatinine Ratio Glucose POC Glucose 164 H 167 H Calcium Phosphorus Magnesium Diagnostic Findings Telemetry personally reviewed: Sinus rhythm. No arrhythmia. ECG personally reviewed from 09/08/2021: Sinus 80 beats per minute. Anterior ST/T-wave abnormality. Medications Administered Current Inpatient Medications Acetaminophen (Acetaminophen 325 Mg Tab) 650 mg PO Q4H PRN PRN Reason: Pain Stop: 10/08/21 22:49 Last Admin: 09/08/21 22:54 Dose: 650 mg Documented by: Aspirin (Aspirin 81 Mg Ectab) 81 mg PO HS [facility]ERVIN Stop: 10/07/21 20:59 Last Admin: 09/08/21 20:12 Dose: 81 mg Documented by: Cyanocobalamin (Cyanocobalamin (B-12) 100 Mcg Tablet) 100 mcg PO QAM [facility] Stop: 10/09/21 09:29 Last Admin: 09/09/21 11:25 Dose: 100 mcg Documented by: Dextrose (Dextrose 50% 50 Ml Syringe) 25 - 50 ml IV UD PRN; Protocol PRN Reason: Hypoglycemia Protocol Stop: 10/08/21 10:59 Fenofibrate (Fenofibrate Nanocrystallized 145 Mg Tablet) 145 mg PO QAM [facility] Stop: 10/08/21 08:59 Last Admin: 09/09/21 08:02 Dose: 145 mg Documented by: Fluticasone Propionate (Fluticasone Propionate Na Spr 16 Gm Btl) 2 sprays LILA DAILY PRN PRN Reason: Congestion Stop: 10/07/21 20:18 Glucagon (Glucagon For Inj 1 Mg Vial) 1 mg IM UD PRN; Protocol PRN Reason: Hypoglycemia Protocol Stop: 10/08/21 10:59 Glucose (Glucose 40% Gel 15 Gm Tube) 15 - 30 gm PO UD PRN; Protocol PRN Reason: Hypoglycemia Protocol Stop: 10/08/21 10:59 Glucose (Glucose 10 Tabs/Tube) 4 - 8 tabs PO UD PRN; Protocol PRN Reason: Hypoglycemia Protocol Stop: 10/08/21 10:59 Nitroglycerin/Dextrose (Nitroglycerin/D5w 100 Mcg/Ml) 250 mls @ 0 mls/hr IV .Q0M [facility]; Protocol Stop: 10/07/21 15:29 Last Admin: 09/08/21 23:32 Dose: Not Given Documented by: Insulin Aspart (Insulin Aspart Per Unit) 0 units SC ACHS [facility] Stop: 10/08/21 11:29 Last Admin: 09/09/21 08:11 Dose: 4 units Documented by: Isosorbide Mononitrate (Isosorbide [place] Extended Rel 30 Mg Tabcr) 30 mg PO QAM [facility] Stop: 10/09/21 10:14 Last Admin: 09/09/21 11:25 Dose: 30 mg Documented by: Levalbuterol HCl (Levalbuterol Hcl 0.63 Mg/3 Ml Neb) 0.63 mg INH Q4H PRN PRN Reason: Dyspnea Stop: 10/07/21 20:18 Metoprolol Tartrate (Metoprolol Tartrate 25 Mg Tab) 25 mg PO BID [facility] Stop: 10/08/21 08:59 Last Admin: 09/09/21 08:02 Dose: 25 mg Documented by: Miscellaneous (Icu Protocol For Hyperglycemia) 1 ea N/A PRN PRN; Protocol PRN Reason: Hyperglycemia Protocol Stop: 09/09/21 20:18 Miscellaneous (Carbohydrates For Hypoglycemia ) 15 - 30 gm PO UD PRN PRN Reason: Hypoglycemia Treatment Stop: 10/08/21 10:59 Pantoprazole Sodium (Pantoprazole 40 Mg Tab) 40 mg PO DAILYBB [facility] Stop: 10/08/21 06:29 Last Admin: 09/09/21 05:48 Dose: 40 mg Documented by: Senna/Docusate Sodium (Docusate Sodium/Senna 50/8.6mg Tab) 1 tab PO QAM [facility] Stop: 10/08/21 11:44 Last Admin: 09/09/21 08:02 Dose: 1 tab Documented by: PG Care Time/CCT Total # of Minutes Spent Total Time Spent with Patient: Total time spent is greater than 50% in coordination of care (as documented) at patient's floor/unit and/or counseling patient: Coding Level of Care Code 03081 Subseq Hosp Care Lvl 3 Diagnoses NSTEMI (non-ST elevated myocardial infarction) I21.4 Acute systolic CHF (congestive heart failure) I50.21 Coronary artery disease I25.10 S/P CABG x 3 Z95.1 Aortic stenosis I35.0 Cardiac valve disease etiology: etiology unspecified Mitral regurgitation I34.0 Aortic regurgitation I35.1 Ischemic cardiomyopathy I25.5 (1) Aortic stenosis Cardiac valve disease etiology: etiology unspecified Qualified Code(s): I35.0 - Nonrheumatic aortic (valve) stenosis
[2021-09-09] MEDS ORDERED: CLOPIDOGREL BISULFATE 75 MG TAB PO ONE (12:24)
[2021-09-09] MEDS: NITROGLYCERIN/D5W 100MCG/ML 250 ML IV SCH (15:44)
[2021-09-09] MEDS ORDERED: METOPROLOL TARTRATE 50 MG TAB PO SCH (21:00)
[2021-09-09] MEDS ORDERED: metFORMIN HCL 500 MG TAB PO SCH (21:00)
[2021-09-09] MEDS: ASPIRIN 81 MG ECTAB PO SCH (21:03)
[2021-09-10 04:19] LABS: Basophils # (auto) 0.01 K/uL (0-0.2); Basophils % (auto) 0.2 %; Eosinophils # (auto) 0.05 K/uL (0-0.5); Eosinophils % (auto) 1.1 %; Hematocrit (blood only) 33.2 % (37-47); Hemoglobin 10.3 g/dL (12.0-16.0); Immature Granulocytes # (auto) 0.01 K/uL (0.00-0.02); Immature Granulocytes % (auto) 0.2 %; Lymphocytes # (auto) 1.23 K/uL (1.2-3.4); Lymphocytes % (auto) 28.1 %; Mean Corpuscular Hemoglobin 28.2 pg (25-34); Mean Platelet Volume 8.8 fL (7.4-10.4); Monocytes # (auto) 0.46 K/uL (0.11-0.59); Monocytes % (auto) 10.5 %; Neutrophils # (auto) 2.62 K/uL (1.4-6.5); Neutrophils % (auto) 59.9 %; Platelet Count 218 K/uL (130-400); RDW Standard Deviation 60.3 fL (36.4-46.3); Red Blood Count 3.65 M/uL (4.2-5.4); White Blood Count 4.38 K/uL (4.8-10.8)
[2021-09-10 04:29] LABS: Partial Thromboplastin Ratio 0.9; Partial Thromboplastin Time 25.4 Seconds (21.0-31.0)
[2021-09-10 04:49] LABS: BUN Creatinine Ratio 10.9 (10-20); Calcium 9.2 mg/dl (8.5-10.1); Creatinine Clr Calc Pharmacy 36.3 ml/min; Est GFR (African American) 41.5 ml/min; Est GFR (Non-African American) 35.8 ml/min; Phosphorus 2.8 mg/dl (2.5-4.9); Potassium 4.5 mmol/L (3.5-5.1)
[2021-09-10] MEDS ORDERED: METOPROLOL TARTRATE 1 MG/ML VIAL IV STA (05:38)
--- NOTE | 2021-09-10 05:43 | Communication Note ---
Date of Service: September 10, 2021 S: Called to the room at approximately 5:30 AM to evaluate the patient as she developed evidence of atrial fibrillation on telemetry. Patient denied any c hest pressure chest pain, shortness of breath, other concerning symptoms. She did note a trace odor in her urine which developed over the past few days however denied symptoms of UTI. She states she has not had atrial fibrillation in the past. She is otherwise asymptomatic. O: Trace pedal edema on exam, lung sounds remain clear, irregularly irregular rhythm tachycardic diastolic murmur A/P: #Paroxysmal atrial fibrillation Suspect secondary to underlying congestive heart failure. Unclear if this is the first episode or it was observed on telemetry. Regardless primary team will need to consider the initiation of chronic long-term anticoagulation. Suspect patient would likely benefit from diuresis however she states that Lasix causes her to have severe leg cramps. In an effort to gain rate/rhythm control without diuresis will give 5 mg IV metoprolol. Day team to consider a more long-term strategy and whether diuresis is required.
[2021-09-10] MEDS: PANTOprazole 40 MG TAB PO SCH ×2 (06:09→08:24)
[2021-09-10] MEDS: ISOSORBIDE MONO EXTENDED REL 30 MG TABCR PO SCH (08:24)
[2021-09-10] MEDS: CYANOCOBALAMIN (B-12) 100 MCG TABLET PO SCH (08:24)
[2021-09-10] MEDS: FENOFIBRATE NANOCRYSTALLIZED 145 MG TABLET PO SCH (08:24)
[2021-09-10] MEDS: DOCUSATE SODIUM/SENNA 50/8.6MG TAB PO SCH (08:24)
[2021-09-10] MEDS: INSULIN ASPART PER UNIT SC SCH (08:29)
[2021-09-10] MEDS ORDERED: MAGNESIUM OXIDE 400 MG TAB PO SCH (09:00)
[2021-09-10] MEDS ORDERED: CLOPIDOGREL BISULFATE 75 MG TAB PO SCH (09:00)
[2021-09-10] MEDS ORDERED: METOPROLOL SUCC 50MG EXT REL TAB PO SCH (09:00)
--- NOTE | 2021-09-10 10:48 | Discharge Summary ---
Date of Service September 10, 2021 Admission HPI Per Admitting Provider 71 YOF with past medical history of: CAD, CABG- 2002 - [facility], Aortic Stenosis, BPH, HLD, colon resection. 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 She has started this process with CATH being performed. Her cath was done on 08/26/21- this is in our system scanned in 08/26/21- noted disaes but no plan to intervene. Her CABG history is ALLISON to LAD, with Y graft to the OM and radial artery bypass to the RCA. Her aortic gradient was 34 with DI-0.18. She presents today with onset of back pain this morning between her shoulder blades and dyspnea. She reports that she gets this with her cervical back pain with some radicular symptoms to her arms, but this morning was worse. She did try heating pack and felt somewhat better, but not improved. She got up to go get her iron infusion today at the transfusion center and by the time she walked in, she was having increase in her dyspnea as well as worsening pain in her back that then felt like a band around her chest. This was associated with tingling and pain in her bilateral arms, again this is not her normal pain she gets. She started her iron transfusion and become dyspneic again with return of the above symptoms. She was transferred to the [facility] where a heart alert was called- her Troponin was 0.36 and CXR noted pulmonary edema. She was given 40mg IV Lasix evaluated by interventional cardiology and requested transfer to [facility] They have no bed availability at this time. Hospitalist service was consulted for admission as well as ICU. Patient will be placed on NTG drip at this time, follow diuresis with re-dosing likely needed, as well as BiPAP. She is hypoxic on room air or with any movement and is not pain free at this time. CTA of the chest for dissection was negative for dissection and negative for large PE. Continue to note emphysematous thickening and pulmonary edema. Patient improved with addition of NTG and lasix- ECHO was performed at bedside concern for NSTEMI and heparin infusion started. Admit ICU COVID test on admission is: NEGATIVE Principal Diagnosis Non-ST elevation OK, acute systolic congestive heart failure Discharge Exam General-alert and oriented x3, no fevers, no chills HEENT-head atraumatic and normocephalic, TMs intact bilaterally, pupils equal and reactive to light, extraocular muscles intact Neck-no lymphadenopathy or thyromegaly, trachea midline Chest-clear to auscultation percussion. No rales wheezing or rhonchi Cardiac-regular rate and rhythm, normal S1 and S2, no murmurs Abdomen-normal bowel sounds, nontender, no hepatosplenomegaly Extremities-no cyanosis, clubbing, or edema Neuro-cranial nerves II through XII intact, motor and sensory function within normal limits, strength symmetrical , no focal deficits Psych-normal affect, normal mood Discharge Data Allergies Allergy/AdvReac Type Severity Reaction Status Date / Time codeine Allergy Severe respiratory Verified 09/07/21 13:18 difficulty adhesive Allergy Intermediate skin pulls Verified 09/07/21 13:18 off latex Allergy Mild itchy with Verified 09/07/21 13:18 gloves amoxicillin Allergy Unknown Unknown Verified 09/07/21 13:18 Consultations 09/07/21 14:33 ED Decision to Admit Stat 09/07/21 20:19 Consult Press Tender Smoke Signal Routine Procedures Performed Operation Date: 09/07/21 13:30 <No data on this case meets the specified criteria> Ordered Studies 09/07/21 13:32 CL Cath Imgs for PACS use only Stat 09/07/21 14:11 CT angio chest dissec wo/w con Stat Hospital Course (1) Aortic stenosis: Severe Aortic Stenosis awaiting evaluation at [facility] [place]AV[place]. Presented with sustained chest pressure, hypoxia, and dyspnea- evidence of pulmonary congestion on admission. Now resolved. Lasix has been discontinued. Further outpatient evaluation and management at [facility]. (2) Angina at rest: Angina currently suppressed with intravenous nitroglycerin drip. Subsequently switched to isosorbide mononitrate. Cardiology consultation appreciated. Continue current medical management. (3) NSTEMI (non-ST elevated myocardial infarction): Currently stable. She completed heparin drip for 48 hours duration. Nitroglycerin drip has been discontinued. Imdur has been started. Cardiology consultation appreciated. (4) Dyspnea on exertion: Secondary to aortic stenosis and pulmonary edema on admission. Resolved (5) Coronary artery disease: Recent Cath 08/26/21- CAD to bypassed vessels. Appreciate interventional cardiology assistance. Treated with heparin drip and nitroglycerin drip. Continue other current medications (6) Chronic kidney disease, stage III (moderate): Stable. Monitor intake and output. Serial lab studies. Avoid nephrotoxic agents. (7) Type 2 diabetes mellitus: ADA diet. Sliding scale insulin coverage as needed. (8) Hyperlipidemia: Continue statin Discharged to home today, September 10. Continued outpatient cardiology evaluation at [facility]. Total Time Total Time Spent Total Time Spent (In Minutes): 35 minutes Discharge Plan Discharge Items Patient Disposition: Transfer Acute Care Hospital Reason For Visit: CHEST PAIN, DYSPNEA Discharge Diagnosis: Acute Heart failure with NSTEMI- severe aortic stenosis Condition on Discharge: Serious Activity: Per Instructions section Activity Comment: minimal exertion, to chair and bathroom Lifting: No more than 5 pounds Exercise/Sports: None Non-emergency contact: Primary Care Provider Call non-emergency contact if: you have any medication questions Follow-up/Referrals: eSan Wakefield CRNP [Primary Care Provider] - Diet: Carb Consistent or DM2 and Heart Healthy Addtl Attending Provider Instructions: You are being transferred to [facility] for evaluation of your Aortic Valve and CAD in light of recent NSTEMI and acute heart failure exacerbation. Pending Studies at Discharge: No Stand-Alone Forms: My [facility] Skilled Items Patient informed of condition?: Yes DNR: No Discharge Level of Care: Other Communicable Disease: No Discharge Prognosis: Stable Lines: None Urinary Catheter: No Medications and DC Order Prescriptions: New isosorbide mononitrate 30 mg Tablet Extended Release 24 Hr 30 mg PO QAM Qty: 30 RF: 0 clopidogrel 75 mg Tablet 75 mg PO QAM Qty: 30 RF: 0 fenofibrate nanocrystallized 145 mg Tablet 145 mg PO QAM Qty: 30 RF: 0 metoprolol succinate 100 mg tablet extended release 24 hr 100 mg PO DAILY Qty: 30 RF: 0 aspirin 81 mg Tablet,Delayed Release (Dr/Ec) 81 mg PO HS Qty: 90 RF: 0 cyanocobalamin (vitamin B-12) [Vitamin B-12] 100 mcg Tablet 100 mcg PO QAM Qty: 30 RF: 0 Continued omeprazole 20 mg capsule,delayed release(DR/EC) 20 mg PO DAILYBB Qty: 90 RF: 1 fenofibrate nanocrystallized 145 mg tablet 145 mg PO QAM Qty: 90 RF: 1 metformin 500 mg tablet 500 mg PO BID Qty: 180 RF: 1 aspirin 81 mg tablet,delayed release (DR/EC) 81 mg PO HS RF: 0 fluticasone propionate 50 mcg/actuation spray,suspension 2 sprays intranasal DAILY PRN (Reason: Congestion) RF: 0 magnesium 250 mg tablet 400 mg PO DAILY RF: 0 Discontinued (DME) FreeStyle Test strip See Dose Instructions .ROUTE .MEDSUPPLY Qty: 10 RF: 0 (DME) blood-glucose meter [FreeStyle System Kit] kit See Dose Instructions .ROUTE .MEDSUPPLY Qty: 1 RF: 0 atenolol 25 mg tablet 37.5 mg PO QAM Qty: 135 RF: 3 Discharge Orders: Discharge Order (Routine); Ordered 09/10/21 Ordered By: Jairon Forbes Admission Data Admit Date/Time: 09/07/21 15:23 Attending Provider: Jairon Forbes Admit Provider: Fede Melo Primary Care Provider: Sean Wakefield Other Providers: Mehul Meehan ; Fede Melo Coding Level of Care Code D/C DAY MANAGEMENT >30 MINS Diagnoses Aortic stenosis I35.0 Angina at rest I20.8 NSTEMI (non-ST elevated myocardial infarction) I21.4 Dyspnea on exertion R06.00 Coronary artery disease I25.10 Chronic kidney disease, stage III (moderate) N18.3 Type 2 diabetes mellitus E11.9 Diabetes mellitus tank terminal gauger insulin use: without usp use Diabetes mellitus complication status: without complication Hyperlipidemia E78.5
--- NOTE | 2021-09-10 12:20 | Electrocardiogram Report ---
Test Reason : Blood Pressure : / mmHG Vent. Rate : 108 BPM Atrial Rate : 091 BPM P-R Int : 000 ms QRS Dur : 088 ms QT Int : 358 ms P-R-T Axes : 000 -07 119 degrees QTc Int : 479 ms Atrial fibrillation with rapid ventricular response Marked ST abnormality, possible anterolateral subendocardial injury Abnormal ECG When compared with ECG of 08-SEP-2021 14:24, Atrial fibrillation has replaced Sinus rhythm ST more depressed Anterior leads Confirmed by Wilfredo Valles ([id number]) on 09/10/2021 12:19:56 PM Referred By: REFERRED SELF Confirmed By:Wilfredo Valles
== END 2021-09-10 12:06 | disposition home or self-care (01) | DRG 280 ==
LOC: ED 12:52 → SUATTDRO 15:23 → EDINP 15:23 → 1E 19:49 → 2S 09-09 16:00